=== PATIENT | female | born 1975 | race Caucasian/White ===

== ENCOUNTER 2018-09-22 12:28 | Emergency (ER) | payer OTHER ==
[2018-09-22 13:16] VITALS: RESP 18
[2018-09-22] MEDS ORDERED: ONDANSETRON 4 MG/2 ML VIAL IVP STA ×2 (13:48→18:34)
[2018-09-22] MEDS ORDERED: SODIUM CHLORIDE 0.9% 2,000 ML IV STA (13:48)
[2018-09-22 14:34] LABS: Basophils % (A) 0 %; Eosinophils # (A) 0.3 k/uL (0-0.7); Eosinophils % (A) 3 %; HCT 42.4 % (34.0-46.0); HGB 14.1 gm/dL (11.4-16.0); Lymphocytes % (A) 21 %; MCH 29.6 pg (25.0-35.0); MCHC 33.3 g/dL (31.0-37.0); MCV 88.9 fL (80.0-100.0); Mean Platelet Volume 6.5; Monocytes # (A) 0.5 k/uL (0-1.0); Monocytes % (A) 5 %; Neutrophils # (A) 6.8 k/uL (1.3-7.7); Neutrophils % (A) 69 %; Platelet Count 390 k/uL (150-450); RBC 4.77 m/uL (3.80-5.40); RDW 13.2 % (11.5-15.5); WBC 9.8 k/uL (3.8-10.6)
[2018-09-22 14:44] LABS: ALT 21 U/L (9-52); AST 20 U/L (14-36); Albumin 4.1 g/dL (3.5-5.0); Alkaline Phosphatase 96 U/L (38-126); Amylase 49 U/L (30-110); Anion Gap 9 mmol/L; Blood Urea Nitrogen 16 mg/dL (7-17); Calcium 9.7 mg/dL (8.4-10.2); Carbon Dioxide 26 mmol/L (22-30); Chloride 104 mmol/L (98-107); Glucose 110 mg/dL (74-99); Lipase 61 U/L (23-300); Potassium 4.3 mmol/L (3.5-5.1); Sodium 139 mmol/L (137-145); Total Bilirubin 0.6 mg/dL (0.2-1.3); Total Protein 7.2 g/dL (6.3-8.2)
--- NOTE | 2018-09-22 14:46 | CT ---
EXAMINATION TYPE: CT brain wo con DATE OF EXAM: 09/22/2018 COMPARISON: None HISTORY: Left occipital headache with dizziness. Family history of aneurysm. CT DLP: 1083.[address] of the brain was performed. The ventricles, basal cisterns and sulci overlying the cerebral convexities demonstrate a normal appe arance. There is no evidence for intracranial hemorrhage or sulcal effacement. No mass effects are seen. Osseous calvarium is intact. Mild chronic sinusitis left maxillary sinus. If symptoms persist consider MRI as clinically warranted. IMPRESSION: 1. No acute intracranial process is seen at this time.
--- NOTE | 2018-09-22 15:21 | XR ---
EXAMINATION TYPE: XR chest 2V DATE OF EXAM: 09/22/2018 COMPARISON: NONE HISTORY: Cough TECHNIQUE: Frontal and lateral views of the chest are obtained. FINDINGS: There is no focal air space opacity, pleural effusion, or pneumothorax seen. The cardiac silhouette size is within normal limits. The osseous structures are intact. IMPRESSION: No acute cardiopulmonary process.
[2018-09-22] MEDS ORDERED: KETOROLAC 30 MG/ML 1 ML VIAL IVP STA (15:25)
--- NOTE | 2018-09-22 15:27 | ED ---
Nausea/Vomiting/Diarrhea HPI - General Chief complaint: Nausea/Vomiting/Diarrhea Stated complaint: Vomiting, fever, headache Time Seen by Provider: 09/22/18 13:24 Source: patient, RN notes reviewed Mode of arrival: ambulatory Limitations: no limitations - History of Present Illness Initial comments: This a 43-year-old female presents emergency from chief complaint of nausea vomiting 4 days. Patient states that she does any better by now but states it has not. Patient states she has mild abdominal discomfort states is just does not feel well. Patient has any hematemesis or coffee-ground emesis. Denies any diarrhea constipation. Patient just states she feels dehydrated. She also felt a headache and last 2 days with no neck pain no neck stiffness. She admits to subjective fever though no recorded temperature at home. Patient denies any chest pain or shortness breath. Patient was recently treated for restaurant infection with antibiotics and steroids. Patient states that she did not take it last few days of antibiotics that she has been sick. Patient reports no sick contacts. - Related Data Home Medications Medication Instructions Recorded Confirmed Levocetirizine Dihydrochloride 10 mg PO DAILY 07/23/15 09/22/18 [Xyzal] Sertraline HCl [Zoloft] 100 mg PO DAILY 07/23/15 09/22/18 ALPRAZolam [Xanax] 0.25 mg PO HS PRN 09/22/18 09/22/18 Dextroamphetamine/Amphetamine 20 mg PO BID 09/22/18 09/22/18 [Adderall] Previous Rx's Medication Instructions Recorded Metoclopramide [Reglan] 10 mg PO TID PRN #15 tab 09/22/18 Ondansetron Odt [Zofran Odt] 4 mg PO Q8HR PRN #10 tab 09/22/18 Allergies Allergy/AdvReac Type Severity Reaction Status Date / Time No Known Allergies Allergy Verified 09/22/18 13:48 Review of Systems ROS Statement: Those systems with pertinent positive or pertinent negative responses have been documented in the HPI. ROS Other: All systems not noted in ROS Statement are negative. Past Medical History Past Medical History: Asthma History of Any Multi-Drug Resistant Organisms: None Reported Past Surgical History: Tonsillectomy Past Psychological History: Depression Smoking Status: Never smoker Past Alcohol Use History: Occasional Past Drug Use History: None Reported General Exam Limitations: no limitations General appearance: alert, in no apparent distress Head exam: Present: atraumatic, normocephalic, normal inspection Eye exam: Present: normal appearance, PERRL, EOMI. Absent: scleral icterus, conjunctival injection, periorbital swelling ENT exam: Present: normal oropharynx, mucous membranes dry, TM's normal bilaterally. Absent: normal exam, mucous membranes moist Neck exam: Present: normal inspection, full ROM. Absent: tenderness, meningismus, lymphadenopathy Respiratory exam: Present: normal lung sounds bilaterally. Absent: respiratory distress, wheezes, rales, rhonchi, stridor Cardiovascular Exam: Present: regular rate, normal rhythm, normal heart sounds. Absent: systolic murmur, diastolic murmur, rubs, gallop, clicks GI/Abdominal exam: Present: soft, normal bowel sounds. Absent: distended, tenderness, guarding, rebound, rigid Neurological exam: Present: alert, oriented X3, CN II-XII intact, reflexes normal, other (Finger to nose intact bilaterally without over shooting). Absent : motor sensory deficit Skin exam: Present: warm, dry, intact, normal color. Absent: rash Course Vital Signs 09/22/18 13:13 Temperature 97.9 F Pulse Rate 74 Respiratory 18 Rate Blood Pressure 150/95 O2 Sat by Pulse 98 Oximetry Medical Decision Making - Medical Decision Making 43-year-old female presented for nausea vomiting headache. Patient was concerned that she is family history of aneurysm and that she may have ruptured aneurysm. CT was obtained which showed no acute abnormality. Patient is improved after IV fluids, antiemetics. Patient lab work was reviewed unremarkable labs, urinalysis shows mild ketones. Patient feels better at this time will be discharged with antiemetics and close follow-up. - Lab Data Result diagrams: 09/22/18 14:23 09/22/18 14:23 Lab Results 09/22/18 09/22/18 09/22/18 Range/Units 14:23 14:23 18:00 WBC 9.8 (3.8-10.6) k/uL RBC 4.77 (3.80-5.40) m/uL Hgb 14.1 (11.4-16.0) gm/dL Hct 42.4 (34.0-46.0) % MCV 88.9 (80.0-100.0) fL MCH 29.6 (25.0-35.0) pg MCHC 33.3 (31.0-37.0) g/dL RDW 13.2 (11.5-15.5) % Plt Count 390 (150-450) k/uL Neutrophils % 69 % Lymphocytes % 21 % Monocytes % 5 % Eosinophils % 3 % Basophils % 0 % Neutrophils # 6.8 (1.3-7.7) k/uL Lymphocytes # 2.0 (1.0-4.8) k/uL Monocytes # 0.5 (0-1.0) k/uL Eosinophils # 0.3 (0-0.7) k/uL Basophils # 0.0 (0-0.2) k/uL Sodium 139 (137-145) mmol/L Potassium 4.3 (3.5-5.1) mmol/L Chloride 104 (98-107) mmol/L Carbon Dioxide 26 (22-30) mmol/L Anion Gap 9 mmol/L BUN 16 (7-17) mg/dL Creatinine 0.71 (0.52-1.04) mg/dL Est GFR (CKD-EPI)AfAm >90 (>60 ml/min/1.73 sqM) Est GFR (CKD-EPI)NonAf >90 (>60 ml/min/1.73 sqM) Glucose 110 H (74-99) mg/dL Calcium 9.7 (8.4-10.2) mg/dL Total Bilirubin 0.6 (0.2-1.3) mg/dL AST 20 (14-36) U/L ALT 21 (9-52) U/L Alkaline Phosphatase 96 (38-126) U/L Total Protein 7.2 (6.3-8.2) g/dL Albumin 4.1 (3.5-5.0) g/dL Amylase 49 (30-110) U/L Lipase 61 (23-300) U/L Urine Color Yellow Urine Appearance Cloudy H (Clear) Urine pH 7.5 (5.0-8.0) Ur Specific [place] 1.019 (1.001-1.035) Urine Protein 1+ H (Negative) Urine Glucose (UA) Negative (Negative) Urine Ketones 1+ H (Negative) Urine Blood Negative (Negative) Urine Nitrite Negative (Negative) Urine Bilirubin Negative (Negative) Urine Urobilinogen <2.0 (<2.0) mg/dL Ur Leukocyte Esterase Trace H (Negative) Urine RBC 4 (0-5) /hpf Urine WBC 3 (0-5) /hpf Ur Squamous Epith Cells 12 H (0-4) /hpf Urine Bacteria Many H (None) /hpf Urine Mucus Moderate H (None) /hpf Disposition Clinical Impression: Nausea & vomiting, Headache Disposition: HOME SELF-CARE Condition: Stable Instructions: Acute Headache (ED), Acute Nausea and Vomiting (ED) Additional Instructions: Please return to the Emergency Department if symptoms worsen or any other concerns. Prescriptions: Metoclopramide [Reglan] 10 mg PO TID PRN #15 tab PRN Reason: GERD Ondansetron Odt [Zofran Odt] 4 mg PO Q8HR PRN #10 tab PRN Reason: Nausea Is patient prescribed a controlled substance at d/c from ED?: No Referrals: Kai Shay MD [Primary Care Provider] - 1-2 days Time of Disposition: 18:34
[2018-09-22] MEDS ORDERED: diphenhydrAMINE 50 MG/ML 1 ML VIAL IVP STA (15:55)
[2018-09-22] MEDS ORDERED: METOCLOPRAMIDE 5 MG/ML 2 ML VIAL IVP STA (15:55)
[2018-09-22 18:29] LABS: Appearance,Urine Cloudy (Clear); Bacteria,Urine Many /hpf; Bilirubin,Urine Negative (Negative); Blood,Urine Negative (Negative); Color,Urine Yellow; Glucose,Urine (UA) Negative (Negative); Ketones,Urine 1+ (Negative); Leukocyte Esterase,Urine Trace (Negative); Mucus,Urine Moderate /hpf; Nitrite,Urine Negative (Negative); PH, Urine 7.5 (5.0-8.0); Protein,Urine 1+ (Negative); RBC,Urine 4 /hpf (0-5); Specific Gravity,Urine 1.019 (1.001-1.035); Squamous Epithelial Cell,Urine 12 /hpf (0-4); Urobilinogen,Urine <2.0 mg/dL (<2.0)
[2018-09-22] MEDS ORDERED: ONDANSETRON ODT 4 MG TAB PO STA ×2 (18:32→18:40)
[2018-09-22 18:44] VITALS: BP 130/82; PULSE 62; TEMP 98
== END 2018-09-22 18:50 | disposition home or self-care (01) ==
LOC: EC 12:28
DX: R11.2 Nausea with vomiting, unspecified (principal); R51 Headache; R82.4 Acetonuria; R50.9 Fever, unspecified; F32.9 Major depressive disorder, single episode, unspecified; Z79.899 Other long term (current) drug therapy
CPT/HCPCS: 36415; 80053; 82150; 83690; 85025; 81001; 71046; 70450; 99284; 96374; 96375 ×3; 96376; 96361 ×2; J1200; J2765; J2405; J1885

== ENCOUNTER 2021-10-26 18:21 | Emergency (ER) | payer BC, OTHER ==
--- NOTE | 2021-10-26 20:10 | CT ---
EXAMINATION TYPE: CT brain cspine wo con DATE OF EXAM: 10/26/2021 COMPARISON: CT brain 09/22/2018 HISTORY: fell hitting head on cement, c/o headache and nausea CT DLP: 1272.4 mGycm Automated exposure control for dose reduction was used. Ventricles and sulci appear normal. There is no mass effect or midline shift. There is no sign of int racranial hemorrhage. Calvarium is intact. There is normal aeration of the mastoid sinuses. Cervical vertebra have normal alignment. Posterior elements are intact. Facet joints are intact. Ther e is no compression fracture. Prevertebral soft tissues are intact IMPRESSION: Negative CT scan of the cervical spine. No change. Negative CT scan of the brain.
--- NOTE | 2021-10-26 20:17 | ED ---
General Adult HPI - General Chief complaint: Head Injury Stated complaint: slip & fall, hit head on cement Time Seen by Provider: 10/26/21 19:31 Source: patient, RN notes reviewed, old records reviewed Mode of arrival: ambulatory Limitations: no limitations - History of Present Illness Initial comments: 46-year-old female presenting head injury. Patient had gone outside to get some male. She slipped on the ice falling backward striking the back of her head. She was unconscious momentarily. She had neck pain as well as significant headache. And nausea. She presents to the emergency department for evaluation. She has some minor other injuries but these were not significant according to the patient. She is not on any blood thinners. - Related Data Home Medications Medication Instructions Recorded Confirmed Levocetirizine Dihydrochloride 10 mg PO DAILY 07/23/15 09/22/18 [Xyzal] Sertraline HCl [Zoloft] 100 mg PO DAILY 07/23/15 09/22/18 ALPRAZolam [Xanax] 0.25 mg PO HS PRN 09/22/18 09/22/18 Dextroamphetamine/Amphetamine 20 mg PO BID 09/22/18 09/22/18 [Adderall] Previous Rx's Medication Instructions Recorded Metoclopramide [Reglan] 10 mg PO TID PRN #15 tab 09/22/18 Ondansetron Odt [Zofran Odt] 4 mg PO Q8HR PRN #10 tab 09/22/18 Allergies Allergy/AdvReac Type Severity Reaction Status Date / Time No Known Allergies Allergy Verified 09/22/18 13:48 Review of Systems ROS Statement: Those systems with pertinent positive or pertinent negative responses have been documented in the HPI. ROS Other: All systems not noted in ROS Statement are negative. Past Medical History Past Medical History: Asthma History of Any Multi-Drug Resistant Organisms: None Reported Past Surgical History: Tonsillectomy Past Psychological History: Depression Smoking Status: Never smoker Past Alcohol Use History: Occasional Past Drug Use History: None Reported General Exam Limitations: no limitations General appearance: alert, in no apparent distress Head exam: Present: atraumatic (Tenderness to palpation without hematoma or laceration on the occipital scalp), normocephalic Eye exam: Present: normal appearance, PERRL, EOMI Neck exam: Present: normal inspection. Absent: tenderness, meningismus Respiratory exam: Present: normal lung sounds bilaterally. Absent: respiratory distress, wheezes Cardiovascular Exam: Present: regular rate, normal rhythm GI/Abdominal exam: Present: soft. Absent: distended, tenderness Extremities exam: Present: normal inspection, normal capillary refill. Absent: pedal edema Neurological exam: Present: alert, oriented X3, CN II-XII intact. Absent: motor sensory deficit Psychiatric exam: Present: normal affect, normal mood Skin exam: Present: warm, dry, intact. Absent: cyanosis, diaphoretic Course Vital Signs 10/26/21 19:08 Temperature 99 F Pulse Rate 60 Respiratory 18 Rate Blood Pressure 153/84 O2 Sat by Pulse 99 Oximetry Medical Decision Making - Medical Decision Making CT negative for intracranial hemorrhage or mass effect, cervical spine negative for fracture subluxation. Patient given Toradol intramuscular, concussion precautions. She will take several days off work. Disposition Clinical Impression: Concussion with loss of consciousness Disposition: HOME SELF-CARE Condition: Fair Instructions (If sedation given, give patient instructions): Concussion (ED) Is patient prescribed a controlled substance at d/c from ED?: No Referrals: Kai Shay MD [Primary Care Provider] - 1-2 days Time of Disposition: 20:16
[2021-10-26] MEDS ORDERED: KETOROLAC 15 MG/ML 1 ML VIAL IM STA (20:24)
[2021-10-26 20:53] VITALS: BP 129/79; PULSE 79; RESP 22; TEMP 98
== END 2021-10-26 20:53 | disposition home or self-care (01) ==
LOC: EC 18:21
DX: S06.0X9A Concussion with loss of consciousness of unspecified duration, initial encounter (principal); J45.909 Unspecified asthma, uncomplicated; F32.A Depression, unspecified; W01.10XA Fall on same level from slipping, tripping and stumbling with subsequent striking against unspecified object, initial encounter
CPT/HCPCS: 99283; 96372; 72125; 70450; J1885

== ENCOUNTER 2024-07-01 10:15 | Inpatient (IN) | payer BC ==
--- NOTE | 2024-07-01 10:24 | ED ---
Abdominal Pain HPI - General Chief Complaint: Abdominal Pain Stated Complaint: Abdominal Pain Time Seen by Provider: 07/01/24 10:24 Source: patient (.), RN notes reviewed Mode of arrival: ambulatory Limitations: no limitations - History of Present Illness Initial Comments: 49-year-old female presents emergency department with referral from urgent care for chief complaint of right lower quadrant abdominal pain that has been present over the past 24 hours. States that the pain has been worsening and will radiate into her back. She denies dysuria, hematuria, increase in urinary frequency or urgency. States that she has been experiencing constipation over the past 24 hours as well. Denies previous surgical abdominal history. Reports a fever at home yesterday and endorses nausea. - Related Data Home Medications Medication Instructions Recorded Confirmed Levocetirizine Dihydrochloride 5 mg PO DAILY 07/23/15 07/01/24 [Xyzal] Sertraline HCl [Zoloft] 200 mg PO DAILY 07/23/15 07/01/24 Gabapentin 600 mg PO BID 07/01/24 07/01/24 Naproxen [Naprosyn] 500 mg PO BID PRN 07/01/24 07/01/24 Topiramate [Topamax] 25 mg PO HS 07/01/24 07/01/24 atenoloL 25 mg PO DAILY 07/01/24 07/01/24 traMADol HCL 50 mg PO BID PRN 07/01/24 07/01/24 traZODone HCL [Desyrel] 100 mg PO HS PRN 07/01/24 07/01/24 Allergies Allergy/AdvReac Type Severity Reaction Status Date / Time peas Allergy Unknown Verified 07/01/24 12:06 shellfish derived [Shellfish] Allergy Anaphylaxis Verified 07/01/24 12:06 sunflower oil Allergy Unknown Verified 07/01/24 12:06 Review of Systems ROS Statement: Those systems with pertinent positive or pertinent negative responses have been documented in the HPI. ROS Other: All systems not noted in ROS Statement are negative. Past Medical History Past Medical History: Asthma Additional Past Medical History / Comment(s): bulging disc to lumbar History of Any Multi-Drug Resistant Organisms: None Reported Past Surgical History: Adenoidectomy, Tonsillectomy Additional Past Surgical History / Comment(s): eye surgery Past Psychological History: Depression Smoking Status: Never smoker Past Alcohol Use History: Occasional Past Drug Use History: None Reported General Exam Limitations: no limitations ENT exam: Present: normal exam, mucous membranes moist Respiratory exam: Present: normal lung sounds bilaterally. Absent: respiratory distress, wheezes, rales, rhonchi, stridor Cardiovascular Exam: Present: regular rate, normal rhythm, normal heart sounds. Absent: systolic murmur, diastolic murmur, rubs, gallop, clicks GI/Abdominal exam: Present: soft, tenderness (RLQ, + rovsings), rebound (LLQ p alpation ilicits pain of the RLQ), normal bowel sounds. Absent: distended, guarding, rigid Extremities exam: Present: normal inspection, full ROM, normal capillary refill. Absent: tenderness, pedal edema, joint swelling, calf tenderness Back exam: Present: normal inspection Skin exam: Present: warm, dry, intact, normal color. Absent: rash Course Vital Signs 07/01/24 10:18 Temperature 98 F Pulse Rate 101 H Respiratory 20 Rate Blood Pressure 116/78 O2 Sat by Pulse 98 Oximetry Medical Decision Making - Medical Decision Making Was pt. sent in by a medical professional or institution (, PA, GASFITTER, urgent care, hospital, or correction...) When possible be specific @ -She was advised by urgent care to report to the emergency department for further evaluation of right lower quadrant abdominal pain. Did you speak to anyone other than the patient for history (EMS, parent, family, police, friend...)? What history was obtained from this source @ -No Did you review nursing and triage notes (agree or disagree)? Why? @ -I reviewed and agree with nursing and triage notes Were old charts reviewed (outside hosp., previous admission, EMS record, old EKG, old radiological studies, urgent care reports/EKG's, correction records)? Report findings @ -No old charts were reviewed Differential Diagnosis (chest pain, altered mental status, abdominal pain women, abdominal pain men, vaginal bleeding, weakness, fever, dyspnea, syncope, headache, dizziness, GI bleed, back pain, seizure, CVA, palpatations, mental health, musculoskeletal)? @ -Differential Abdominal Pain Women: Appendicitis, Cholecystitis, diverticulosis, ischemic bowel, pancreatitis, hepatitis, UTI, gastroenteritis, AAA, incarcerated hernia, bowel obstruction, constipation, inflammatory bowel, hepatitis, peptic ulcer disease, splenic infarction, perforated viscus, vulvitis, ovarian torsion, PID, kidney stone, placenta abruption, this is not meant to be an all-inclusive list EKG interpreted by me (3pts min.). @ -none X-rays interpreted by me (1pt min.). @ -None done CT interpreted by me (1pt min.). @ -CT of the abdomen pelvis with IV contrast reveals findings consistent with acute appendicitis with a markedly dilated and inflamed appendix with inflammatory change in the periappendiceal fat U/S interpreted by me (1pt. min.). @ -None done What testing was considered but not performed or refused? (CT, X-rays, U/S, labs)? Why? @ -None What meds were considered but not given or refused? Why? @ -None Did you discuss the management of the patient with other professionals (professionals i.e. , PA, GASFITTER, lab, RT, psych nurse, social sciences professor, diazo technician, teacher, court collections officer, piano case and bench assembler)? Give summary @ -I spoke with general surgeon on-call, Dr. Leal, in regard to the patient's presentation and CT imaging concerning for appendicitis. Patient will be admitted to general surgery with schedule surgery later this afternoon. Patient will be kept in n.p.o. status. Was smoking cessation discussed for >3mins.? @ -No Was critical care preformed (if so, how long)? @ -No Were there social determinants of health that impacted care today? How? (Homelessness, low income, unemployed, alcoholism, drug addiction, transportation, low edu. Level, literacy, decrease access to med. care, long term, rehab)? @ -No Was there de-escalation of care discussed even if they declined (Discuss DNR or withdrawal of care, Hospice)? DNR status @ -No What co-morbidities impacted this encounter? (DM, HTN, Smoking, COPD, CAD, Cancer, CVA, ARF, Chemo, Hep., AIDS, mental health diagnosis, sleep apnea, morbid obesity)? @ -None Was patient admitted / discharged? Hospital course, mention meds given and route, prescriptions, significant lab abnormalities, going to OR and other pertinent info. @ -Admitted. 49-year-old female with right lower quadrant abdominal pain. On my examination patient noted to have positive Rovsing sign and rebound tenderness. Vitals are stable. She is provided with antiemetics pending laboratory results and CT imaging. She is agree with this plan. Laboratory studies reveal leukocytosis 20.5, left shift neutrophils 18.6, hyponatremia 131, amylase and lipase within normal limits, lactic acid nonelevated at 1.3. CT imaging concerning for acute sinusitis. Patient will be admitted to general surgery for further evaluation. Additionally, patient is started on IV Flagyl and Rocephin after blood cultures were obtained. Undiagnosed new problem with uncertain prognosis? @ -No Drug Therapy requiring intensive monitoring for toxicity (Heparin, Nitro, Insulin, Cardizem)? @ -No Were any procedures done? @ -No Diagnosis/symptom? @ -Appendicitis Acute, or Chronic, or Acute on Chronic? @ -Acute Uncomplicated (without systemic symptoms) or Complicated (systemic symptoms)? @ -Complicated Side effects of treatment? @ -No Exacerbation, Progression, or Severe Exacerbation? @ -No Poses a threat to life or bodily function? How? (Chest pain, [place], MA, pneumonia, PE, COPD, DKA, ARF, appy, cholecystitis, CVA, Diverticulitis, Homicidal, Suicidal, threat to staff... and all critical care pts) @ -No - Lab Data Result diagrams: 07/01/24 10:55 07/01/24 10:55 Lab Results 07/01/24 07/01/24 07/01/24 Range/Units 10:55 10:55 10:55 WBC 20.5 H (3.8-10.6) k/uL RBC 4.35 (3.80-5.40) m/uL Hgb 13.6 (11.4-16.0) gm/dL Hct 40.1 (34.0-46.0) % MCV 92.1 (80.0-100.0) fL MCH 31.3 (25.0-35.0) pg MCHC 34.0 (31.0-37.0) g/dL RDW 12.7 (11.5-15.5) % Plt Count 390 (150-450) k/uL MPV 7.3 Neutrophils % 91 % Lymphocytes % 4 % Monocytes % 3 % Eosinophils % 1 % Basophils % 0 % Neutrophils # 18.6 H (1.3-7.7) k/uL Lymphocytes # 0.9 L (1.0-4.8) k/uL Monocytes # 0.7 (0-1.0) k/uL Eosinophils # 0.2 (0-0.7) k/uL Basophils # 0.0 (0-0.2) k/uL Sodium 131 L (137-145) mmol/L Potassium 3.7 (3.5-5.1) mmol/L Chloride 100 (98-107) mmol/L Carbon Dioxide 21 L (22-30) mmol/L Anion Gap 10 mmol/L BUN 14 (7-17) mg/dL Creatinine 0.89 (0.52-1.04) mg/dL Est GFR (CKD-EPI)AfAm 88 (>60 ml/min/1.73 sqM) Est GFR (CKD-EPI)NonAf 76 (>60 ml/min/1.73 sqM) Glucose 162 H (74-99) mg/dL Plasma Lactic Acid Misha 1.3 (0.7-2.0) mmol/L Calcium 8.6 (8.4-10.2) mg/dL Total Bilirubin 0.9 (0.2-1.3) mg/dL AST 18 (14-36) U/L ALT 13 (4-34) U/L Alkaline Phosphatase 90 (38-126) U/L Total Protein 6.3 (6.3-8.2) g/dL Albumin 3.8 (3.5-5.0) g/dL Amylase 39 (30-110) U/L Lipase 35 (23-300) U/L Disposition Clinical Impression: Acute appendicitis Disposition: ADMITTED IP TO THIS [facility] Condition: Serious Decision to Admit Reason: Admit from [facility] Decision Date: 07/01/24 Decision Time: 12:05
[2024-07-01] MEDS: HYDROmorphone 1 MG/ML 1 ML SYRINGE IVP STA (10:53)
[2024-07-01 11:06] LABS: Basophils % (A) 0 %; Eosinophils # (A) 0.2 k/uL (0-0.7); Eosinophils % (A) 1 %; HCT 40.1 % (34.0-46.0); HGB 13.6 gm/dL (11.4-16.0); Lymphocytes # (A) 0.9 k/uL (1.0-4.8); Lymphocytes % (A) 4 %; MCH 31.3 pg (25.0-35.0); MCV 92.1 fL (80.0-100.0); Mean Platelet Volume 7.3; Monocytes # (A) 0.7 k/uL (0-1.0); Monocytes % (A) 3 %; Neutrophils # (A) 18.6 k/uL (1.3-7.7); Neutrophils % (A) 91 %; Platelet Count 390 k/uL (150-450); RBC 4.35 m/uL (3.80-5.40); RDW 12.7 % (11.5-15.5); WBC 20.5 k/uL (3.8-10.6)
[2024-07-01 11:25] LABS: ALT 13 U/L (4-34); AST 18 U/L (14-36); African American GFR (CKD) 88 (>60 ml/min/1.73 sqM); Albumin 3.8 g/dL (3.5-5.0); Alkaline Phosphatase 90 U/L (38-126); Amylase 39 U/L (30-110); Anion Gap 10 mmol/L; Blood Urea Nitrogen 14 mg/dL (7-17); Calcium 8.6 mg/dL (8.4-10.2); Carbon Dioxide 21 mmol/L (22-30); Chloride 100 mmol/L (98-107); Glucose 162 mg/dL (74-99); Lipase 35 U/L (23-300); Non-African American GFR(CKD) 76 (>60 ml/min/1.73 sqM); Potassium 3.7 mmol/L (3.5-5.1); Sodium 131 mmol/L (137-145); Total Bilirubin 0.9 mg/dL (0.2-1.3); Total Protein 6.3 g/dL (6.3-8.2)
--- NOTE | 2024-07-01 11:49 | CT ---
EXAMINATION TYPE: CT abdomen pelvis w con DATE OF EXAM: 07/01/2024 COMPARISON: None HISTORY: rlq PAIN CT DLP: 1464.4 mGycm Automated exposure control for dose reduction was used. TECHNIQUE: Helical acquisition of images was performed from the lung bases through the pelvis. CONTRAST: Performed without Oral Contrast and with IV Contrast, patient injected with 100 mL of Isovue 300. FINDINGS: The lung bases are clear. The gallbladder is normal without distention, wall thickening, pericholecystic fluid or gallstones. T here is no biliary ductal dilatation. There is no focal mass or organomegaly involving the liver, pancreas, spleen or adrenal glands. There is no solid renal mass or hydronephrosis and there is homogeneous contrast enhancement of the r enal parenchyma. The caliber the abdominal aorta is normal is no retroperitoneal adenopathy or hemorr vik. There is a markedly dilated and inflamed appendix. There is moderate to marked inflammatory change in the periappendiceal fat. Focal ileus of the right colon and terminal ileum. There is no bowel obstruction. There is no free intraperitoneal air or fluid. No pelvic mass, free fluid, abscess or adenopathy. The osseous structures and soft tissues are intact. IMPRESSION: Findings consistent with acute appendicitis as described above. [facility], , 07/01/2024 11:47 AM
[2024-07-01] MEDS: SODIUM CHLORIDE 0.9% 1,000 ML IV STA (11:54)
[2024-07-01] MEDS ORDERED: NALOXONE 0.4 MG/ML 1 ML VIAL IV PRN (12:05)
[2024-07-01] MEDS: cefTRIAXone IN SWFI 1,000 MG/10 ML SYRINGE IVP STA (13:10)
[2024-07-01] MEDS: metroNIDAZOLE-NS PMX 500 MG in SALINE 1 100ML.BAG IVPB SCH (13:10)
[2024-07-01] MEDS: HYDROmorphone 1 MG/ML 1 ML SYRINGE IVP PRN (13:45)
--- NOTE | 2024-07-01 13:55 | P.GSHP ---
History of Present Illness H&P Date: 07/01/24 CHIEF COMPLAINT: Abdominal pain HISTORY OF PRESENT ILLNESS: This is a 49-year-old female who presented with right lower quadrant abdominal pain that started yesterday morning. Patient initially thought she had flulike symptoms with nausea and feeling lightheaded. She reports having a fever of 102. However, pain continue to worsen in the right lower quadrant. Patient denies any prior abdominal surgeries. Denies any cardiac history. She had a CT scan abdomen pelvis that showed evidence of acute appendicitis. Patient admitted to surgical service. WBC is elevated. PAST MEDICAL HISTORY: Asthma, 2 bulging disks of lumbar spine PAST SURGICAL HISTORY: See below MEDICATIONS: See below ALLERGIES: See below SOCIAL HISTORY: No illicit drug use. REVIEW OF SYSTEMS: CONSTITUTIONAL: Denies fever or chills. HEENT: Denies blurred vision, vision changes, or eye pain. Denies hemoptysis CARDIOVASCULAR: Denies chest pain or pressure. RESPIRATORY: No shortness of breath. GASTROINTESTINAL: See HPI for pertinent findings HEMATOLOGIC: Denies bleeding disorders. GENITOURINARY: Denies any blood in urine or increased urinary frequency. SKIN: Denies pruitis. Denies rash. PHYSICAL EXAM: VITAL SIGNS: Reviewed GENERAL: Well-developed in no acute distress. HEENT: No sclera icterus. Extraocular movements grossly intact. Moist buccal mucosa. Head is atraumatic, normocephalic. No nasal drainage. ABDOMEN: Soft. Nondistended. Right lower quadrant tenderness with palpation NEUROLOGIC: Alert and oriented. Cranial nerves II through XII grossly intact. LABORATORY DATA: WBC 20.5 Hgb 13.6 platelets 390 Sodium 131 potassium 3.7 creatinine 0.9 Lactic acid 1.3 LFTs normal. Lipase 35 IMAGING: CT scan findings consistent with acute appendicitis ASSESSMENT: 1. Acute appendicitis PLAN: -Patient scheduled for laparoscopic appendectomy today with Dr. Leal -Keep patient n.p.o. -Continue antibiotics -Continue pain management -IV fluids added Physician Insulation Board Coater Operator note has been reviewed by physician. Signing provider agrees with the documented findings, assessment, and plan of care. I have personally seen and examined the patient, reviewed the ALUMINUM SIDING INSTALLER /PAs history, exam and MDM and agree with the assessment and plan as written. Based on total visit time, I have performed more than 50% of the visit. As above: Patient with impressive CAT scan showing marked inflammatory changes right lower quadrant. Patient however states symptoms just began yesterday. Cecum itself appears somewhat unusual. Likely this is just related to a severe case of acute appendicitis with possible rupture. Will proceed with laparoscopic, possible open appendectomy at this time. Risks of bleeding, infection, scarring, leak, abscess, conversion to open procedure, need for bowel resection, progressive sepsis, bladder bowel and ureteral injury reviewed. She understands and wishes to proceed. Past Medical History Past Medical History: Asthma Additional Past Medical History / Comment(s): bulging disc to lumbar History of Any Multi-Drug Resistant Organisms: None Reported Past Surgical History: Adenoidectomy, Tonsillectomy Additional Past Surgical History / Comment(s): eye surgery Past Psychological History: Depression Smoking Status: Never smoker Past Alcohol Use History: Occasional Past Drug Use History: None Reported Medications and Allergies Home Medications Medication Instructions Recorded Confirmed Type Levocetirizine Dihydrochloride 5 mg PO DAILY 07/23/15 07/01/24 History [Xyzal] Sertraline HCl [Zoloft] 200 mg PO DAILY 07/23/15 07/01/24 History Gabapentin 600 mg PO BID 07/01/24 07/01/24 History Naproxen [Naprosyn] 500 mg PO BID PRN 07/01/24 07/01/24 History Topiramate [Topamax] 25 mg PO HS 07/01/24 07/01/24 History atenoloL 25 mg PO DAILY 07/01/24 07/01/24 History traMADol HCL 50 mg PO BID PRN 07/01/24 07/01/24 History traZODone HCL [Desyrel] 100 mg PO HS PRN 07/01/24 07/01/24 History Allergies Allergy/AdvReac Type Severity Reaction Status Date / Time peas Allergy Unknown Verified 07/01/24 12:06 shellfish derived [Shellfish] Allergy Anaphylaxis Verified 07/01/24 12:06 sunflower oil Allergy Unknown Verified 07/01/24 12:06 Surgical - Exam Vital Signs Temp Pulse Resp BP Pulse Ox 98 F 101 H 20 116/78 98 07/01/24 10:18 07/01/24 10:18 07/01/24 10:18 07/01/24 10:18 07/01/24 10:18 Results - Labs 07/01/24 10:55 07/01/24 10:55 Abnormal Lab Results - Last 24 Hours (Table) 07/01/24 07/01/24 Range/Units 10:55 10:55 WBC 20.5 H (3.8-10.6) k/uL Neutrophils # 18.6 H (1.3-7.7) k/uL Lymphocytes # 0.9 L (1.0-4.8) k/uL Sodium 131 L (137-145) mmol/L Carbon Dioxide 21 L (22-30) mmol/L Glucose 162 H (74-99) mg/dL Diabetes panel 07/01/24 Range/Units 10:55 Sodium 131 L (137-145) mmol/L Potassium 3.7 (3.5-5.1) mmol/L Chloride 100 (98-107) mmol/L Carbon Dioxide 21 L (22-30) mmol/L BUN 14 (7-17) mg/dL Creatinine 0.89 (0.52-1.04) mg/dL Glucose 162 H (74-99) mg/dL Calcium 8.6 (8.4-10.2) mg/dL AST 18 (14-36) U/L ALT 13 (4-34) U/L Alkaline Phosphatase 90 (38-126) U/L Total Protein 6.3 (6.3-8.2) g/dL Albumin 3.8 (3.5-5.0) g/dL Calcium panel 07/01/24 Range/Units 10:55 Calcium 8.6 (8.4-10.2) mg/dL Albumin 3.8 (3.5-5.0) g/dL Pituitary panel 07/01/24 Range/Units 10:55 Sodium 131 L (137-145) mmol/L Potassium 3.7 (3.5-5.1) mmol/L Chloride 100 (98-107) mmol/L Carbon Dioxide 21 L (22-30) mmol/L BUN 14 (7-17) mg/dL Creatinine 0.89 (0.52-1.04) mg/dL Glucose 162 H (74-99) mg/dL Calcium 8.6 (8.4-10.2) mg/dL Adrenal panel 07/01/24 Range/Units 10:55 Sodium 131 L (137-145) mmol/L Potassium 3.7 (3.5-5.1) mmol/L Chloride 100 (98-107) mmol/L Carbon Dioxide 21 L (22-30) mmol/L BUN 14 (7-17) mg/dL Creatinine 0.89 (0.52-1.04) mg/dL Glucose 162 H (74-99) mg/dL Calcium 8.6 (8.4-10.2) mg/dL Total Bilirubin 0.9 (0.2-1.3) mg/dL AST 18 (14-36) U/L ALT 13 (4-34) U/L Alkaline Phosphatase 90 (38-126) U/L Total Protein 6.3 (6.3-8.2) g/dL Albumin 3.8 (3.5-5.0) g/dL
[2024-07-01] MEDS: IV FLUID CONTINUATION 1,000 ML IV ONE ×2 (13:56→16:43)
[2024-07-01] MEDS: ONDANSETRON 4 MG/2 ML VIAL IVP STA (14:16)
[2024-07-01] MEDS: HEPARIN SODIUM,PORCINE 5,000 UNIT/ML 1 ML VIAL SQ STA (14:17)
[2024-07-01] MEDS ORDERED: PROPOFOL 10 MG/ML 20 ML VIAL IV ONE (14:34)
[2024-07-01] MEDS ORDERED: LIDOCAINE 1% INJ 10MG/ML (20 ML MDV) ONE (14:34)
[2024-07-01] MEDS ORDERED: fentaNYL (PF) 50 MCG/ML 2 ML AMP ONE (14:34)
[2024-07-01] MEDS ORDERED: SUCCINYLCHOLINE CHLORIDE 200 MG/10 ML VIAL IV ONE (14:34)
[2024-07-01] MEDS ORDERED: SUGAMMADEX SODIUM 200 MG/2 ML SDV IV ONE (14:34)
[2024-07-01] MEDS ORDERED: ROCURONIUM 10 MG/ML (5 ML VIAL) IV ONE (14:34)
[2024-07-01] MEDS ORDERED: NEOSTIGMINE 1 MG/ML 10 ML VIAL ONE (14:34)
[2024-07-01] MEDS ORDERED: HYDROmorphone (PF) 1 MG/ML ONE (14:34)
[2024-07-01] MEDS ORDERED: MIDAZOLAM 2 MG/2 ML VIAL ONE (14:34)
[2024-07-01] MEDS ORDERED: GLYCOPYRROLATE 0.2 MG/ML 2 ML VIAL ONE (14:34)
[2024-07-01] MEDS: SODIUM CHLORIDE 0.9% 100 ML with ceFAZolin 2,000 MG IV ONE (14:38)
[2024-07-01] MEDS: LIDOCAINE 1%-EPI 1:100,000 20 ML VIAL SQ ONE ×2 (15:01)
[2024-07-01] MEDS ORDERED: ACETAMINOPHEN TAB 325 MG TAB PO PRN (15:39)
--- NOTE | 2024-07-01 15:43 | P.OP ---
Date of Procedure: 07/01/24 Procedure(s) Performed: PREOPERATIVE DIAGNOSIS: Acute appendicitis POSTOPERATIVE DIAGNOSIS: Acute gangrenous appendicitis PROCEDURE: Laparoscopic appendectomy SURGEON: Mel EBL: 10 cc ANESTHESIA: General COMPLICATIONS: None OPERATIVE PROCEDURE: The patient was brought and placed on the operating table in the supine position. The patient was placed under general anesthesia. The abdomen was prepped and draped in the usual sterile fashion. A small vertical infraumbilical incision was made. The fascia was retracted anteriorly with Frederic forceps. The Veress needle was advanced into the peritoneal cavity. The saline drop test was normal. Insufflation took place to 15 mmHg. A 5 mm trocar was then placed. An additional 5 mm suprapubic trocar was placed under direct visualization as well as a 12 mm left lower quadrant trocar under direct visualization. The appendix was inspected. It was acutely inflamed with gangrenous changes. There were some adhesions between the cecum and the abdominal wall that appeared chronic in nature. These were lysed using blunt dissection and LigaSure. The mesoappendix was dissected. The base of the appendix was divided using a linear white load 45 mm intestinal stapler. The mesentery itself was divided using LigaSure. The area was then irrigated. No further purulence or bleeding was seen. The appendix was brought out of the peritoneal cavity through the left lower quadrant trocar site with an Endo Catch bag. I decided given the gangrenous nature and the degree of inflammatory changes in the right lower quadrant to leave a drain there. This was brought out through the suprapubic trocar site. The drain was brought from the pelvis along the right gutter. This was sutured to the skin using a 3-0 silk stitch. The fascia at the 12 mm site was closed using a Hiro-Geetha 0 Vicryl stitch. The skin at all 3 sites was closed using 4-0 Monocryl sutures. Skin glue was then applied. DISPOSITION: Stable to recovery room
[2024-07-01] MEDS: KETOROLAC 15 MG/ML 1 ML VIAL IVP SCH (16:16)
[2024-07-01] MEDS: HYDROmorphone 0.5 MG/0.5 ML SYRINGE IVP PRN (16:16)
[2024-07-01] MEDS: SODIUM CHLORIDE 0.9% 1,000 ML IV SCH (17:37)
[2024-07-01] MEDS: HEPARIN SODIUM,PORCINE 5,000 UNIT/ML 1 ML VIAL SQ SCH (17:53)
[2024-07-01] MEDS: PIPERACILLIN-TAZOBACTAM 3.375 GM in SODIUM CHLORIDE 0.9% 100 ML IVPB SCH ×2 (18:24→23:16)
[2024-07-01] MEDS: D5-0.45% NACL WITH KCL 20MEQ/L 1,000 ML IV SCH (19:52)
[2024-07-02] MEDS: HYDROcodone/APAP 5-325MG 1 EACH TAB PO PRN (08:23)
[2024-07-02] MEDS: PANTOPRAZOLE 40 MG/10 ML VIAL IV SCH (08:23)
--- NOTE | 2024-07-02 09:10 | P.PN ---
Subjective Progress Note Date: 07/02/24 Principal diagnosis: Gangrenous appendicitis Patient says her pain is slightly improved although still quite uncomfortable. YAIMA drain is serosanguineous. She is afebrile. Morning labs pending. No nausea. Tolerating liquids. Objective - Vital Signs Vital signs: Vital Signs Temp 98.3 F 07/02/24 07:00 Pulse 86 07/02/24 07:00 Resp 16 07/02/24 07:00 BP 105/67 07/02/24 07:00 Pulse Ox 96 07/02/24 07:00 FiO2 Intake & Output 07/01/24 07/02/24 07/02/24 18:59 06:59 18:59 Intake Total 1100 Output Total 10 Balance 1090 Weight 101.605 kg Intake: IV 1100 Output: Estimated Blood Loss 10 Other: # Voids 1 3 - Exam Abdomen: Soft, nondistended, incisions clean and dry, mild tenderness to right side and left side, YAIMA serosanguineous - Labs CBC & Chem 7: 07/01/24 10:55 07/01/24 10:55 Labs: Abnormal Lab Results - Last 24 Hours (Table) 07/01/24 07/01/24 Range/Units 10:55 10:55 WBC 20.5 H (3.8-10.6) k/uL Neutrophils # 18.6 H (1.3-7.7) k/uL Lymphocytes # 0.9 L (1.0-4.8) k/uL Sodium 131 L (137-145) mmol/L Carbon Dioxide 21 L (22-30) mmol/L Glucose 162 H (74-99) mg/dL Assessment and Plan (1) Acute appendicitis Narrative/Plan: 49-year-old female doing fairly well after laparoscopic appendectomy yesterday. Continue increasing activity. Continue antibiotics. Gradually advance diet. Keep drain in place. Current Visit: Yes Status: Acute Code(s): K35.80 - UNSPECIFIED ACUTE APPENDICITIS SNOMED Code(s): 90049062
[2024-07-02 10:02] LABS: ALT 8 U/L (8-44); AST 14 U/L (13-35); Albumin 3.4 g/dL (3.8-4.9); Alkaline Phosphatase 91 U/L (41-126); Blood Urea Nitrogen 9.1 mg/dL (9.0-27.0); Carbon Dioxide 25.3 mmol/L (21.6-31.8); Chloride 102 mmol/L (96-109); Glucose 132 mg/dL (70-110); Potassium 3.9 mmol/L (3.5-5.5); Sodium 136 mmol/L (135-145); Total Bilirubin 0.3 mg/dL (0.3-1.2); Total Protein 5.4 g/dL (6.2-8.2)
[2024-07-02 10:10] LABS: Basophils # (A) 0.06 X 10*3/uL (0.00-0.10); Basophils % (A) 0.3 %; Eosinophils # (A) 0.28 X 10*3/uL (0.04-0.35); Eosinophils % (A) 1.4 %; HCT 36.3 % (37.2-46.3); HGB 11.9 g/dL (12.0-15.0); Lymphocytes # (A) 1.59 X 10*3/uL (0.90-5.00); Lymphocytes % (A) 7.7 %; MCH 30.7 pg (27.0-32.0); MCHC 32.8 g/dL (32.0-37.0); MCV 93.8 FL (80.0-97.0); Mean Platelet Volume 9.8 FL (9.5-12.2); Monocytes # (A) 1.35 X 10*3/uL (0.20-1.00); Monocytes % (A) 6.5 %; NRBC Per 100 WBC 0 X 10*3/uL (0.00-0.01); Neutrophils # (A) 17.28 X 10*3/uL (1.80-7.70); Neutrophils % (A) 83.4 %; Platelet Count 357 X 10*3/uL (140-440); RBC 3.87 X 10*6/uL (4.10-5.20); RDW 12.6 % (11.5-14.5); WBC 20.71 X 10*3/uL (4.50-10.00)
[2024-07-03] MEDS: DOCUSATE 100 MG CAP PO SCH (09:12)
[2024-07-03] MEDS: diphenhydrAMINE 25 MG CAP PO PRN (09:12)
--- NOTE | 2024-07-03 10:03 | P.PN ---
Subjective Progress Note Date: 07/03/24 Principal diagnosis: Gangrenous appendicitis Patient says her pain is improved today. Still mostly in the right lower quadrant. YAIMA drain serosanguineous and slightly cloudy. White blood cell count yesterday remained elevated at 20,000. She is afebrile. No tachycardia. Tole rating regular diet. Objective - Vital Signs Vital signs: Vital Signs Temp 97.9 F 07/03/24 07:00 Pulse 79 07/03/24 09:23 Resp 16 07/03/24 09:23 BP 114/75 07/03/24 07:00 Pulse Ox 98 07/03/24 07:00 FiO2 Intake & Output 07/02/24 07/03/24 07/03/24 18:59 06:59 18:59 Intake Total 480 240 Output Total 40 Balance 480 -40 240 Intake: Oral 480 240 Output: Drainage 40 Anterior Abdomen 40 Other: # Voids 2 2 - Exam Abdomen: Soft, mild right lower quadrant tenderness, mild left-sided incisional tenderness, YAIMA serosanguineous - Labs CBC & Chem 7: 07/02/24 03:43 07/02/24 03:43 Labs: Abnormal Lab Results - Last 24 Hours (Table) 07/02/24 07/02/24 Range/Units 03:43 03:43 WBC 20.71 H (4.50-10.00) X 10*3/uL RBC 3.87 L (4.10-5.20) X 10*6/uL Hgb 11.9 L (12.0-15.0) g/dL Hct 36.3 L (37.2-46.3) % Immature Gran # 0.15 H (0.00-0.04) X 10*3/uL Neutrophils # 17.28 H (1.80-7.70) X 10*3/uL Monocytes # 1.35 H (0.20-1.00) X 10*3/uL Glucose 132 H (70-110) mg/dL Calcium 8.0 L (8.7-10.3) mg/dL Total Protein 5.4 L (6.2-8.2) g/dL Albumin 3.4 L (3.8-4.9) g/dL Microbiology - Last 24 Hours (Table) 07/01/24 13:20 Blood Culture - Preliminary Blood Assessment and Plan (1) Acute appendicitis Narrative/Plan: Patient doing slightly better today. Degree of tenderness is improved. Continue antibiotics. Continue regular diet. Ambulate. Recheck CBC tomorrow. Current Visit: Yes Status: Acute Code(s): K35.80 - UNSPECIFIED ACUTE APPENDICITIS SNOMED Code(s): 31714339
[2024-07-04 08:46] LABS: Blood Urea Nitrogen 3.9 mg/dL (9.0-27.0); Carbon Dioxide 26.3 mmol/L (21.6-31.8); Chloride 106 mmol/L (96-109); Glucose 138 mg/dL (70-110); Sodium 140 mmol/L (135-145)
[2024-07-04 08:49] LABS: Basophils # (A) 0.02 X 10*3/uL (0.00-0.10); Basophils % (A) 0.2 %; Eosinophils # (A) 0.76 X 10*3/uL (0.04-0.35); Eosinophils % (A) 7.7 %; HCT 34.8 % (37.2-46.3); HGB 11.4 g/dL (12.0-15.0); Lymphocytes # (A) 1.21 X 10*3/uL (0.90-5.00); Lymphocytes % (A) 12.2 %; MCH 31.2 pg (27.0-32.0); MCHC 32.8 g/dL (32.0-37.0); MCV 95.3 FL (80.0-97.0); Mean Platelet Volume 9.8 FL (9.5-12.2); Monocytes # (A) 0.83 X 10*3/uL (0.20-1.00); Monocytes % (A) 8.4 %; NRBC Per 100 WBC 0 X 10*3/uL (0.00-0.01); Neutrophils # (A) 7.03 X 10*3/uL (1.80-7.70); Neutrophils % (A) 71.2 %; Platelet Count 351 X 10*3/uL (140-440); RBC 3.65 X 10*6/uL (4.10-5.20); RDW 12.3 % (11.5-14.5); WBC 9.88 X 10*3/uL (4.50-10.00)
--- NOTE | 2024-07-04 11:12 | P.PN ---
Subjective Progress Note Date: 07/04/24 CHIEF COMPLAINT: Acute appendicitis HISTORY OF PRESENT ILLNESS: Patient is postop day #3 status post laparoscopic appendectomy for gangrenous appendicitis. Patient does complain of pain in that right lower quadrant. Denies any nausea or vomiting. She is having flatus. Patient reports urinating frequently. But does report the urine is still a little dark. YAIMA drain 40 mL cloudy serosanguineous output. Afebrile. WBC has normalized from 20-9.88 PHYSICAL EXAM: VITAL SIGNS: Reviewed. GENERAL: Well-developed in no acute distress. ABDOMEN: Soft. Nondistended. Tender right lower quadrant. Incision sites clean dry and intact. YAIMA drain with cloudy serosanguineous output.. NEUROLOGIC: Alert and oriented. Cranial nerves II through XII grossly intact. ASSESSMENT: 1. Gangrenous appendicitis PLAN: -Continue pain management -Encourage patient to ambulate -Incentive spirometer ordered -Decrease IV fluids to 50 mL/h -Continue antibiotics -GI prophylaxis Protonix and DVT prophylaxis subcu heparin Physician Sap Grc Security note has been reviewed by physician. Signing provider agrees with the documented findings, assessment, and plan of care. I have personally seen and examined the patient, reviewed the PERINATAL INSTRUCTOR /PAs history, exam and MDM and agree with the assessment and plan as written. Based on total visit time, I have performed more than 50% of the visit. As above: Patient says pain is slightly better than yesterday. Still mostly on the right side. White blood cell count is normal now. Afebrile. No tachycardia. Continue antibiotics. Continue diet. Reassess for discharge tomorrow. Objective - Vital Signs Vital signs: Vital Signs Temp 98 F 07/04/24 07:20 Pulse 74 07/04/24 07:20 Resp 16 07/04/24 07:20 BP 133/82 07/04/24 07:20 Pulse Ox 96 07/04/24 07:20 FiO2 Intake & Output 07/03/24 07/04/24 07/04/24 18:59 06:59 18:59 Intake Total 240 Balance 240 Intake: Oral 240 Other: # Voids 3 2 - Labs CBC & Chem 7: 07/04/24 04:41 07/04/24 04:41 Labs: Abnormal Lab Results - Last 24 Hours (Table) 07/04/24 07/04/24 Range/Units 04:41 04:41 RBC 3.65 L (4.10-5.20) X 10*6/uL Hgb 11.4 L (12.0-15.0) g/dL Hct 34.8 L (37.2-46.3) % Eosinophils # 0.76 H (0.04-0.35) X 10*3/uL BUN 3.9 L (9.0-27.0) mg/dL BUN/Creatinine Ratio 6.50 L (12.00-20.00) Ratio Glucose 138 H (70-110) mg/dL Calcium 8.0 L (8.7-10.3) mg/dL Microbiology - Last 24 Hours (Table) 07/01/24 13:20 Blood Culture - Preliminary Blood
[2024-07-05] MEDS: ONDANSETRON 4 MG/2 ML VIAL IVP PRN (08:25)
[2024-07-05] MEDS: traMADol 50 MG TAB PO PRN (08:32)
[2024-07-05] MEDS: IPRATROPIUM-ALBUTEROL 3 ML NEB INHALATION SCH (09:06)
--- NOTE | 2024-07-05 12:33 | P.PN ---
Subjective Progress Note Date: 07/05/24 CHIEF COMPLAINT: Acute appendicitis HISTORY OF PRESENT ILLNESS: Patient is postop day #4 status post laparoscopic appendectomy for gangrenous appendicitis. Patient is complaining of cough and wheezing. She does have a known history of asthma. She reports that her abdomen abdominal pain is worse today due to the coughing. She did have an episode of vomiting this morning. She does report having bowel movements. She did ambulate. Afebrile. PHYSICAL EXAM: VITAL SIGNS: Reviewed. GENERAL: Well-developed in no acute distress. ABDOMEN: Soft. Nondistended. Mild diffuse tenderness. Mostly tender right lower quadrant. YAIMA drain serosanguineous output. NEUROLOGIC: Alert and oriented. Cranial nerves II through XII grossly intact. ASSESSMENT: 1. Gangrenous appendicitis PLAN: -DuoNeb updrafts added for cough and wheezing -Encourage patient to ambulate -Continue to monitor -Continue supportive care -Continue pain management -Encourage patient to ambulate -Incentive spirometer ordered -Discontinue IV fluids -Continue antibiotics -GI prophylaxis Protonix and DVT prophylaxis subcu heparin Physician Winderman note has been reviewed by physician. Signing provider agrees with the documented findings, assessment, and plan of care. I have personally seen and examined the patient, reviewed the BIOLOGICAL SCIENTIST /PAs history, exam and MDM and agree with the assessment and plan as written. Based on total visit time, I have performed more than 50% of the visit. As above: Patient doing better now. This morning she had some coughing and some trouble breathing which improved. Apparently she uses an inhaler for this at home. Pain slightly improved. YAIMA drain remains cloudy. Continue IV antibi otics. Objective - Vital Signs Vital signs: Vital Signs Temp 97.7 F 07/05/24 07:00 Pulse 80 07/05/24 09:47 Resp 16 07/05/24 07:00 BP 145/87 07/05/24 07:00 Pulse Ox 100 07/05/24 07:00 FiO2 Intake & Output 07/04/24 07/05/24 07/05/24 18:59 06:59 18:59 Other: Voiding Method Toilet # Voids 4 2 # Bowel Movements 1 - Labs CBC & Chem 7: 07/04/24 04:41 07/04/24 04:41 Labs: Microbiology - Last 24 Hours (Table) 07/01/24 13:20 Blood Culture - Preliminary Blood
[2024-07-05] MEDS: SERTRALINE 100 MG TAB PO SCH (15:17)
[2024-07-05] MEDS: METOCLOPRAMIDE 5 MG/ML 2 ML VIAL IVP PRN (22:46)
--- NOTE | 2024-07-06 13:05 | P.PN ---
Subjective Progress Note Date: 07/06/24 CHIEF COMPLAINT: Acute appendicitis HISTORY OF PRESENT ILLNESS: Patient is postop day #5 status post laparoscopic appendectomy for gangrenous appendicitis. Patient reports improvement in her breathing and wheezing with the breathing treatments. She did have episode of vomiting last night. Her pain is slightly better. She is tolerating diet. She is eating only a small amount of the food. YAIMA drain more serous in color. She had 60 mL output per nursing staff. Per nursing staff patient has been draining her own YAIMA drain. PHYSICAL EXAM: VITAL SIGNS: Reviewed. GENERAL: Well-developed in no acute distress. ABDOMEN: Soft. Nondistended. Mild diffuse tenderness. Mostly tender right lower quadrant. YAIMA drain more serous in color and slightly cloudy output. NEUROLOGIC: Alert and oriented. Cranial nerves II through XII grossly intact. ASSESSMENT: 1. Gangrenous appendicitis PLAN: -Repeat CBC in a.m. -Anticipate discharge possibly tomorrow -Encourage patient to ambulate -Patient will be discharged home with a YAIMA drain -Continue pain management -Continue antibiotics -GI prophylaxis Protonix and DVT prophylaxis subcu heparin Physician Wind Turbine Mechanic note has been reviewed by physician. Signing provider agrees with the documented findings, assessment, and plan of care. Objective - Vital Signs Vital signs: Vital Signs Temp 98.6 F 07/06/24 07:02 Pulse 80 07/06/24 12:23 Resp 16 07/06/24 12:23 BP 150/75 07/06/24 07:02 Pulse Ox 96 07/06/24 07:02 FiO2 Intake & Output 07/05/24 07/06/24 07/06/24 18:59 06:59 18:59 Intake Total 118 Balance 118 Intake: Oral 118 Other: Voiding Method Toilet Toilet # Voids 5 - Labs CBC & Chem 7: 07/04/24 04:41 07/04/24 04:41
[2024-07-06 20:17] VITALS: TEMP 97.9
[2024-07-07 07:39] VITALS: BP 131/76; RESP 17
[2024-07-07 08:03] VITALS: PULSE 74
[2024-07-07 08:58] LABS: HCT 35.2 % (37.2-46.3); HGB 11.4 g/dL (12.0-15.0); MCH 30.2 pg (27.0-32.0); MCHC 32.4 g/dL (32.0-37.0); MCV 93.4 FL (80.0-97.0); Mean Platelet Volume 9.4 FL (9.5-12.2); NRBC Per 100 WBC 0 X 10*3/uL (0.00-0.01); Platelet Count 401 X 10*3/uL (140-440); RBC 3.77 X 10*6/uL (4.10-5.20); RDW 12.4 % (11.5-14.5); WBC 11.99 X 10*3/uL (4.50-10.00)
[2024-07-07 10:14] LABS: Basophils # (A) 0.06 X 10*3/uL (0.00-0.10); Basophils % (A) 0.5 %; Eosinophils # (A) 0.71 X 10*3/uL (0.04-0.35); Eosinophils % (A) 5.9 %; Lymphocytes # (A) 2.37 X 10*3/uL (0.90-5.00); Lymphocytes % (A) 19.8 %; Monocytes # (A) 0.99 X 10*3/uL (0.20-1.00); Monocytes % (A) 8.3 %; Neutrophils # (A) 7.79 X 10*3/uL (1.80-7.70); Neutrophils % (A) 64.9 %; RBC Morphology Normal (Normal)
--- NOTE | 2024-07-07 10:48 | P.DS ---
Providers Date of admission: 07/04/24 11:54 Expected date of discharge: 07/07/24 Attending physician: Angel Luis Leal Primary care physician: Physician Nonstaff Hospital Course: Discharge diagnosis 1. Gangrenous appendicitis status post laparoscopic appendectomy Hospital course This is a 49-year-old female who presented with right lower quadrant abdominal pain. CT scan abdomen pelvis had reported evidence of acute appendicitis. Patient is status post laparoscopic appendectomy. Her pain is controlled. She is tolerating diet. She is having bowel movements. She has been up and ambulating. She is afebrile. Her pain is controlled. She is stable for discharge. Please refer to chart for any further details. Physician Administrative Library Assistant note has been reviewed by physician. Signing provider agrees with the documented findings, assessment, and plan of care. Patient Condition at Discharge: Stable Plan - Discharge Summary Discharge Rx Participant: No New Discharge Prescriptions: New Amoxic-Pot Clav 875-125Mg [Augmentin 875-125] 1 tab PO Q12HR 7 Days #14 tab HYDROcodone/APAP 5-325MG [[place] 5-325] 1 tab PO Q6HR PRN 3 Days #12 tab PRN Reason: Pain Continue Sertraline HCl [Zoloft] 200 mg PO DAILY Levocetirizine Dihydrochloride [Xyzal] 5 mg PO DAILY traZODone HCL [Desyrel] 100 mg PO HS PRN PRN Reason: Insomnia atenoloL 25 mg PO DAILY Naproxen [Naprosyn] 500 mg PO BID PRN PRN Reason: Pain Topiramate [Topamax] 25 mg PO HS Gabapentin 600 mg PO BID Discontinued traMADol HCL 50 mg PO BID PRN PRN Reason: Pain Discharge Medication List Levocetirizine Dihydrochloride [Xyzal] 5 mg PO DAILY 07/23/15 [History] Sertraline HCl [Zoloft] 200 mg PO DAILY 07/23/15 [History] Gabapentin 600 mg PO BID 07/01/24 [History] Naproxen [Naprosyn] 500 mg PO BID PRN 07/01/24 [History] Topiramate [Topamax] 25 mg PO HS 07/01/24 [History] atenoloL 25 mg PO DAILY 07/01/24 [History] traZODone HCL [Desyrel] 100 mg PO HS PRN 07/01/24 [History] Amoxic-Pot Clav 875-125Mg [Augmentin 875-125] 1 tab PO Q12HR 7 Days #14 tab 07/07/24 [Rx] HYDROcodone/APAP 5-325MG [[place] 5-325] 1 tab PO Q6HR PRN 3 Days #12 tab 07/07/24 [Rx] Follow up Appointment(s)/Referral(s): None,Stated [REFERRING] - 1-2 days Angel Luis Leal MD [Medical Doctor] - 1 Week Activity/Diet/Wound Care/Special Instructions: No driving while taking [place] No lifting over 10 pounds You may shower. No soaking or tub baths for 2 weeks Very light activity until you are reevaluated at your follow up appointment with your surgeon Keep a log of YAIMA drain output and bring with you to your follow-up appointment Milk/strip drains 2-3 times a day Discharge Disposition: HOME SELF-CARE
== END 2024-07-07 12:55 | disposition home or self-care (01) | DRG 399 ==
LOC: EC 10:15 → 6NMEDSUR 11:57 → OBSVTOIN 07-04 11:54
PROVIDERS: ADMIT Surgery; ATTEND Surgery
PROC: 0DTJ4ZZ Resection of Appendix, Percutaneous Endoscopic Approach (ICD-10-PCS; principal; 2024-07-01 08:50)
DX: K35.891 Other acute appendicitis without perforation, with gangrene (principal); F32.A Depression, unspecified; J45.909 Unspecified asthma, uncomplicated; K59.00 Constipation, unspecified; Z79.899 Other long term (current) drug therapy
CPT/HCPCS: 36415; 74177; 80048; 80053; 82150; 83605; 83690; 85025; 87040; 88304; 94640; 96361; 96365; 96375; 96376; 99285

== ENCOUNTER 2025-02-08 16:41 | Observation (INO) | payer BC, OTHER ==
--- NOTE | 2025-02-08 18:00 | ED ---
General Adult HPI - General Chief complaint: Upper Respiratory Infection Stated complaint: cough SOB Time Seen by Provider: 02/08/25 17:20 Source: patient, RN notes reviewed Mode of arrival: ambulatory Limitations: no limitations - History of Present Illness Initial comments: 49-year-old female presents emergency department chief complaint of dyspnea. P atient states she has been sick over a month she has been multiple antibiotics, steroids, breathing treatments with no symptom relief. She does have underlying asthma worsening symptoms. Patient states she did a breathing treatment just prior to arrival states it did not help much. Patient states that she has been seen by her PCP in urgent care. Patient denies chest pain no headache states that she has worsening symptoms with ambulation, worsening cough no leg pain or leg swelling. - Related Data Home Medications Medication Instructions Recorded Confirmed Levocetirizine Dihydrochloride 5 mg PO DAILY 07/23/15 07/01/24 [Xyzal] Sertraline HCl [Zoloft] 200 mg PO DAILY 07/23/15 07/01/24 Gabapentin 600 mg PO BID 07/01/24 07/01/24 Naproxen [Naprosyn] 500 mg PO BID PRN 07/01/24 07/01/24 Topiramate [Topamax] 25 mg PO HS 07/01/24 07/01/24 atenoloL 25 mg PO DAILY 07/01/24 07/01/24 traZODone HCL [Desyrel] 100 mg PO HS PRN 07/01/24 07/01/24 Previous Rx's Medication Instructions Recorded Amoxic-Pot Clav 875-125Mg 1 tab PO Q12HR 7 Days #14 tab 07/07/24 [Augmentin 875-125] HYDROcodone/APAP 5-325MG [Bostic 1 tab PO Q6HR PRN 3 Days #12 tab 07/07/24 5-325] Ondansetron Odt [Zofran Odt] 4 mg PO Q8HR PRN #9 tab 07/07/24 Allergies Allergy/AdvReac Type Severity Reaction Status Date / Time peas Allergy Unknown Verified 02/08/25 17:15 shellfish derived [Shellfish] Allergy Anaphylaxis Verified 02/08/25 17:15 sunflower oil Allergy Unknown Verified 02/08/25 17:15 Review of Systems ROS Statement: Those systems with pertinent positive or pertinent negative responses have been documented in the HPI. ROS Other: All systems not noted in ROS Statement are negative. Past Medical History Past Medical History: Asthma Additional Past Medical History / Comment(s): bulging disc to lumbar History of Any Multi-Drug Resistant Organisms: None Reported Past Surgical History: Adenoidectomy, Tonsillectomy Additional Past Surgical History / Comment(s): eye surgery Past Psychological History: Depression Smoking Status: Never smoker Past Alcohol Use History: Occasional Past Drug Use History: None Reported General Exam Limitations: no limitations General appearance: alert, in no apparent distress Head exam: Present: atraumatic, normocephalic, normal inspection Eye exam: Present: normal appearance, PERRL, EOMI. Absent: scleral icterus, conjunctival injection, periorbital swelling ENT exam: Present: normal exam, normal oropharynx, mucous membranes moist Neck exam: Present: normal inspection, full ROM. Absent: tenderness, meningismus, lymphadenopathy Respiratory exam: Present: respiratory distress, wheezes. Absent: normal lung sounds bilaterally, rales, rhonchi, stridor Cardiovascular Exam: Present: normal rhythm, tachycardia, normal heart sounds. Absent: systolic murmur, diastolic murmur, rubs, gallop, clicks Course Vital Signs 02/08/25 02/08/25 02/08/25 17:13 18:12 18:20 Temperature 98.1 F Pulse Rate 108 H 98 100 Respiratory 22 Rate Blood Pressure 129/81 O2 Sat by Pulse 94 L Oximetry 02/08/25 18:29 Temperature Pulse Rate 102 H Respiratory Rate Blood Pressure O2 Sat by Pulse Oximetry EKG Findings - EKG Comments: EKG Findings:: EKG performed at 18: 44 sinus rhythm rate 98 MT 168 QRS 93 QT/QTc 366/421 - EKG Results: EKG: interpreted by ERMD Medical Decision Making - Medical Decision Making Was pt. sent in by a medical professional or institution (, PA, DATA OPERATIONS MANAGER, urgent care, hospital, or half-way...) When possible be specific @ -No Did you speak to anyone other than the patient for history (EMS, parent, family, police, friend...)? What history was obtained from this source @ -No Did you review nursing and triage notes (agree or disagree)? Why? @ -I reviewed and agree with nursing and triage notes Were old charts reviewed (outside hosp., previous admission, EMS record, old EKG, old radiological studies, urgent care reports/EKG's, half-way records)? Report findings @ -No old charts were reviewed Differential Diagnosis (chest pain, altered mental status, abdominal pain women, abdominal pain men, vaginal bleeding, weakness, fever, dyspnea, syncope, headache, dizziness, GI bleed, back pain, seizure, CVA, palpatations, mental health, musculoskeletal)? @ -Differential Dyspnea: Coronary syndrome, arrhythmia, tamponade, asthma, COPD, pulmonary embolism, pneumonia, pneumothorax, pulmonary effusion, anaphylaxis, diabetic ketoacidosis, flailed chest, pulmonary contusion, diaphragmatic rupture, anemia, neuromuscular, this is not meant to be an all-inclusive list. EKG interpreted by me (3pts min.). @ -As above X-rays interpreted by me (1pt min.). @ -Chest x-ray shows no acute cardiopulmonary process CT interpreted by me (1pt min.). @ -None done U/S interpreted by me (1pt. min.). @ -None done What testing was considered but not performed or refused? (CT, X-rays, U/S, labs)? Why? @ -None What meds were considered but not given or refused? Why? @ -None Did you discuss the management of the patient with other professionals (professionals i.e. , PA, DATA OPERATIONS MANAGER, lab, RT, psych nurse, social services specialist, post form remover, teacher, gunnery/ordnance officer, case therapist)? Give summary @ -EMH for admission Was smoking cessation discussed for >3mins.? @ -No Was critical care preformed (if so, how long)? @ -No Were there social determinants of health that impacted care today? How? (Homelessness, low income, unemployed, alcoholism, drug addiction, transportation, low edu. Level, literacy, decrease access to med. care, assisted, rehab)? @ -No Was there de-escalation of care discussed even if they declined (Discuss DNR or withdrawal of care, Hospice)? DNR status @ -No What co-morbidities impacted this encounter? (DM, HTN, Smoking, COPD, CAD, Cancer, CVA, ARF, Chemo, Hep., AIDS, mental health diagnosis, sleep apnea, morbid obesity)? @ -Asthma Was patient admitted / discharged? Hospital course, mention meds given and route, prescriptions, significant lab abnormalities, going to OR and other pertinent info. @ -Admitted patient is found to have acute asthma exacerbation she has failed outpatient treatment she has been on multiple steroids, antibiotics breathing treatments without significant improvement. Patient does have mild hypoxia. Patient admitted for pulmonary evaluation, continuation of steroids, treatments. Undiagnosed new problem with uncertain prognosis? @ -No Drug Therapy requiring intensive monitoring for toxicity (Heparin, Nitro, Insulin, Cardizem)? @ -No Were any procedures done? @ -No Diagnosis/symptom? @ -Asthma exacerbation Acute, or Chronic, or Acute on Chronic? @ -Acute Uncomplicated (without systemic symptoms) or Complicated (systemic symptoms)? @ -Complicated Side effects of treatment? @ -No Exacerbation, Progression, or Severe Exacerbation? @ -No Poses a threat to life or bodily function? How? (Chest pain, [place], [place], pneumonia, PE, COPD, DKA, ARF, appy, cholecystitis, CVA, Diverticulitis, Homicidal, Suicidal, threat to staff... and all critical care pts) @ -Asthma, risk of pulmonary function - Lab Data Result diagrams: 02/08/25 17:48 02/08/25 17:48 Lab Results 02/08/25 02/08/25 02/08/25 Range/Units 17:48 17:48 17:48 WBC 11.69 H (4.50-10.00) 10*3/uL RBC 4.51 (4.10-5.20) 10*6/uL Hgb 12.3 (12.0-15.0) g/dL Hct 37.1 L (37.2-46.3) % MCV 82.3 (80.0-97.0) fL MCH 27.3 (27.0-32.0) pg MCHC 33.2 (32.0-37.0) g/dL Plt Count 445 H (140-440) 10*3/uL MPV 9.7 (9.5-12.2) fL Immature Gran % (Auto) 0.3 % Neutrophils % 61.1 % Lymphocytes % 21.1 % Monocytes % 5.8 % Eosinophils % 10.8 % Basophils % 0.9 % Immature Gran # 0.03 (0.00-0.04) 10*3/uL Neutrophils # 7.15 (1.80-7.70) 10*3/uL Lymphocytes # 2.47 (0.90-5.00) 10*3/uL Monocytes # 0.68 (0.20-1.00) 10*3/uL Eosinophils # 1.26 H (0.04-0.35) 10*3/uL Basophils # 0.10 (0.00-0.10) 10*3/uL Sodium 139 (137-145) mmol/L Potassium 3.9 (3.5-5.1) mmol/L Chloride 105 (98-107) mmol/L Carbon Dioxide 23 (22-30) mmol/L Anion Gap 11 mmol/L BUN 13 (7-17) mg/dL Creatinine 0.69 (0.52-1.04) mg/dL Est GFR (CKD-EPI)AfAm >90 (>60 ml/min/1.73 sqM) Est GFR (CKD-EPI)NonAf >90 (>60 ml/min/1.73 sqM) Glucose 100 H (74-99) mg/dL Plasma Lactic Acid Misha 1.3 (0.7-2.0) mmol/L Calcium 9.8 (8.4-10.2) mg/dL Total Bilirubin 0.2 (0.2-1.3) mg/dL AST 20 (14-36) U/L ALT 15 (4-34) U/L Alkaline Phosphatase 92 (38-126) U/L Total Protein 7.4 (6.3-8.2) g/dL Albumin 4.6 (3.5-5.0) g/dL Disposition Clinical Impression: Acute asthma exacerbation Disposition: ADMITTED IP TO THIS HOSP Condition: Fair Referrals: Nonstaff,Physician [Primary Care Provider] - 1-2 days
[2025-02-08] MEDS: methylPREDNISolone SOD SUCCI 125 MG/2 ML VIAL IV STA (18:02)
[2025-02-08] MEDS: SODIUM CHLORIDE 0.9% 1,000 ML IV ONE (18:03)
[2025-02-08 18:04] LABS: Basophils % (A) 0.9 %; Eosinophils # (A) 1.26 10*3/uL (0.04-0.35); Eosinophils % (A) 10.8 %; HCT 37.1 % (37.2-46.3); HGB 12.3 g/dL (12.0-15.0); Lymphocytes # (A) 2.47 10*3/uL (0.90-5.00); Lymphocytes % (A) 21.1 %; MCH 27.3 pg (27.0-32.0); MCHC 33.2 g/dL (32.0-37.0); MCV 82.3 fL (80.0-97.0); Mean Platelet Volume 9.7 fL (9.5-12.2); Monocytes # (A) 0.68 10*3/uL (0.20-1.00); Monocytes % (A) 5.8 %; Neutrophils # (A) 7.15 10*3/uL (1.80-7.70); Neutrophils % (A) 61.1 %; Platelet Count 445 10*3/uL (140-440); RBC 4.51 10*6/uL (4.10-5.20); RDW 14.1 % (11.5-14.5); WBC 11.69 10*3/uL (4.50-10.00)
[2025-02-08] MEDS: IPRATROPIUM-ALBUTEROL 3 ML NEB INHALATION STA (18:12)
[2025-02-08 18:16] LABS: ALT 15 U/L (4-34); AST 20 U/L (14-36); African American GFR (CKD) >90 (>60 ml/min/1.73 sqM); Albumin 4.6 g/dL (3.5-5.0); Alkaline Phosphatase 92 U/L (38-126); Anion Gap 11 mmol/L; Blood Urea Nitrogen 13 mg/dL (7-17); Calcium 9.8 mg/dL (8.4-10.2); Carbon Dioxide 23 mmol/L (22-30); Chloride 105 mmol/L (98-107); Glucose 100 mg/dL (74-99); Non-African American GFR(CKD) >90 (>60 ml/min/1.73 sqM); Potassium 3.9 mmol/L (3.5-5.1); Sodium 139 mmol/L (137-145); Total Bilirubin 0.2 mg/dL (0.2-1.3); Total Protein 7.4 g/dL (6.3-8.2)
--- NOTE | 2025-02-08 18:26 | XR ---
EXAMINATION TYPE: XR chest 2V DATE OF EXAM: 02/08/2025 5:57 PM COMPARISON: Chest radiographs from 09/22/2018. CLINICAL INDICATION: Female, 49 years old with history of difficulty breathing; [facility] TECHNIQUE: XR chest 2V Frontal and lateral views of the chest. FINDINGS: Lungs/Pleura: There is no evidence of pleural effusion, focal consolidation, or pneumothorax. Pulmonary vascularity: Unremarkable. Heart/mediastinum: Cardiomediastinal silhouette is unremarkable. Musculoskeletal: No acute osseous pathology. Other findings: None IMPRESSION: No acute cardiopulmonary disease/process. [facility], , 02/08/2025 6:23 PM
[2025-02-08] MEDS ORDERED: NALOXONE 0.4 MG/ML 1 ML VIAL IVP PRN (19:02)
[2025-02-08] MEDS ORDERED: IPRATROPIUM-ALBUTEROL 3 ML NEB INHALATION PRN (19:02)
[2025-02-08] MEDS: IPRATROPIUM-ALBUTEROL 3 ML NEB INHALATION SCH (19:48)
[2025-02-08] MEDS ORDERED: CYCLOBENZAPRINE 5 MG TAB PO PRN (21:26)
[2025-02-08] MEDS ORDERED: ALBUTEROL NEBULIZED 2.5 MG/3 ML INHALATION PRN ×2 (21:26)
[2025-02-08] MEDS ORDERED: traZODone HCL 50 MG TAB PO PRN (21:26)
[2025-02-08] MEDS: TOPIRAMATE 25 MG TAB PO SCH (22:26)
[2025-02-08] MEDS: GABAPENTIN 300 MG CAP PO SCH (22:26)
[2025-02-09] MEDS: methylPREDNISolone SOD SUCCI 125 MG/2 ML VIAL IV SCH (00:57)
[2025-02-09 01:25] LABS: Influenza A Not Detected (Not Detectd); Influenza B Not Detected (Not Detectd); RSV Not Detected (Not Detectd)
--- NOTE | 2025-02-09 01:39 | P.CNPUL ---
History of Present Illness Consult date: 02/09/25 Requesting physician: Thang Mancia Reason for consult: asthma Chief complaint: Shortness of breath, wheezing, chest tightness, cough History of present illness: Patient is a 49-year-old female with past medical history significant for mild intermittent asthma, originally diagnosed as a child. She also has history of eczema and seasonal allergies. Denies any prior hospitalizations for asthma. Normally, uses her albuterol nebulizer and as needed albuterol inhaler only when sick.. She is a non-smoker, quit approximately 10 years ago. She also has history of hypertension, obesity, previous complicated appendicitis, depression. Was seen on outpatient basis at urgent care center, on December 22, and was told that she had pneumonia. She was treated with a combination of doxycycline for 10 days and prednisone 20 mg for 10 days. This did initially help her symptoms. She has also been using her albuterol nebulizer [id number], 4 times a day. Symptoms then returned/worsened, she went to her primary care provider, on February 01; and was started on another combination of antibiotics including cefdinir and doxycycline. She continues to have shortness of breath, wheezing, chest tightness, nonproductive dry cough. She has had intermittent low-grade fevers of 99.9 to 100.1 F while at home. Appetite has been poor. No nausea, vomiting, diarrhea. Came to the emergency department for evaluation yesterday evening. Workup including a chest x-ray which did not show any acute cardiopulmonary process. No pleural effusions, focal consolidations, or pneumothoraces. CBC: WBC count 11.7, hemoglobin 12.3, platelets 445. CMP unremarkable, electrolytes WDL, creatinine 0.69, glucose 100. Lactic 1.3. Started on a combination of DuoNebs and IV Solu-Medrol in the ED. Vital signs: Temperature 97.9 F, heart rate 68 bpm, blood pressure 113/77 mmHg, nontachypneic, SpO2 recorded at 97% on room air Review of Systems Constitutional: Reports chills, Reports fever, Denies fatigue, Denies night sweats, Denies poor appetite, Denies weight gain, Denies weight loss Ears, nose, mouth and throat: Denies headache, Denies nasal congestion, Denies nasal discharge, Denies post-nasal drip, Denies sinus pain, Denies sinus pressure, Denies sore throat, Denies voice changes Cardiovascular: Reports shortness of breath, Denies chest pain, Denies leg edema, Denies lightheadedness, Denies orthopnea, Denies palpitations, Denies paroxysmal nocturnal dyspnea, Denies syncope Respiratory: Reports as per HPI Gastrointestinal: Reports as per HPI Genitourinary: Denies dysuria, Denies flank pain, Denies hematuria, Denies urinary frequency Musculoskeletal: Reports low back pain (Chronic, receives steroid injections), Denies limitation of motion Integumentary: Denies rash, Denies wounds Neurological: Denies seizures, Denies syncope Past Medical History Past Medical History: Asthma, Hypertension Additional Past Medical History / Comment(s): bulging disc to lumbar, seasonal allergies, insomnia, pre diabetic, on topamax to curve appatiate History of Any Multi-Drug Resistant Organisms: None Reported Past Surgical History: Adenoidectomy, Appendectomy, Tonsillectomy Additional Past Surgical History / Comment(s): eye surgery Past Psychological History: Depression Smoking Status: Former smoker Past Alcohol Use History: Occasional Past Drug Use History: None Reported Medications and Allergies Home Medications Medication Instructions Recorded Confirmed Type Levocetirizine Dihydrochloride 5 mg PO DAILY 07/23/15 02/08/25 History [Xyzal] Sertraline HCl [Zoloft] 100 mg PO DAILY 07/23/15 02/08/25 History Gabapentin 600 mg PO BID 07/01/24 02/08/25 History Naproxen [Naprosyn] 500 mg PO BID PRN 07/01/24 02/08/25 History Topiramate [Topamax] 50 mg PO HS 07/01/24 02/08/25 History atenoloL 25 mg PO DAILY 07/01/24 02/08/25 History traZODone HCL [Desyrel] 50 - 100 mg PO HS PRN 07/01/24 02/08/25 History Albuterol Inhaler [Ventolin Hfa 2 puff INHALATION RT-Q4H PRN 02/08/25 02/08/25 History Inhaler] Albuterol Nebulized [Ventolin 2.5 mg INHALATION RT-Q4H PRN 02/08/25 02/08/25 History Nebulized] Cyclobenzaprine [Flexeril] 5 - 10 mg PO BID PRN 02/08/25 02/08/25 History EPINEPHrine (Auto Inject) [Epipen] 0.3 mg IM ONCE PRN 02/08/25 02/08/25 History Omeprazole 20 mg PO DAILY 02/08/25 02/08/25 History Allergies Allergy/AdvReac Type Severity Reaction Status Date / Time grass pollen Allergy Unknown Verified 02/08/25 19:48 peas Allergy Unknown Verified 02/08/25 19:48 shellfish derived [Shellfish] Allergy Anaphylaxis Verified 02/08/25 19:48 sunflower oil Allergy Anaphylaxis Verified 02/08/25 19:48 Physical Exam Vitals: Vital Signs Temp Pulse Pulse Resp BP BP Pulse Ox 02/08/25 20:05 97.9 F 68 18 113/77 97 02/08/25 20:00 98.2 F 99 17 148/87 97 02/08/25 18:29 102 H 02/08/25 18:20 100 02/08/25 18:12 98 02/08/25 17:13 98.1 F 108 H 22 129/81 94 L Intake and Output 02/08/25 02/08/25 02/09/25 14:59 22:59 06:59 Other: # Voids 0 Weight 104.326 kg GENERAL EXAM: Alert, 49-year-old obese female, fairly comfortable in no apparent distress. HEAD: Normocephalic and atraumatic EYES: Normal reaction of pupils, equal size. NOSE: Clear with pink turbinates. No polyposis THROAT: No erythema or exudates. NECK: No masses, no JVD. CHEST: No chest wall deformity. LUNGS: Equal air entry with expiratory wheezing heard bilaterally throughout. On room air. No conversational dyspnea or accessory muscle use. CVS: S1 and S2 normal with no audible murmur, regular rhythm. No extra heart sounds ABDOMEN: No hepatosplenomegaly, active bowel sounds, no guarding or rigidity. SPINE: No scoliosis or deformity SKIN: No rashes or lesions CENTRAL NERVOUS SYSTEM: No focal deficits, tone is normal in all 4 extremities. EXTREMITIES: There is no peripheral edema, clubbing, or cyanosis. Peripheral pulses are intact. Results - Laboratory Findings CBC and BMP: 02/08/25 17:48 02/08/25 17:48 Abnormal lab findings: Abnormal Labs 02/08/25 02/08/25 17:48 17:48 WBC 11.69 H Hct 37.1 L Plt Count 445 H Eosinophils # 1.26 H Glucose 100 H - Diagnostic Findings Chest x-ray: image reviewed Assessment and Plan Assessment: Acute asthma exacerbation Acute dyspnea, secondary to above Chronic seasonal allergies History of atopic dermatitis Hypertension Obesity, with a BMI of 37.1 kg/m Depression History of appendectomy Plan: Patient's medications, labs, chest x-ray reviewed CXR: No focal infiltrates, pleural effusions, pneumothoraces Check viral 4 Plex On room air Continue combination of DuoNebs and IV Solu-Medrol Add Symbicort Asthma clearly in exacerbation, not ready for discharge. Case to be reviewed with Dr. Pak later this morning. I have personally seen and examined the patient, performed the documentation and the assessment and plan as written. Number of minutes spent on the visit:02/09/2025, the patient is being seen in joint evaluation with the nurse practitioner this evaluation was done and 31 minutes. Patient is actively bronchospastic and wheezy and she has a congested cough. Not producing any significant sputum. She was hospitalized for an acute tracheobronchitis and asthma exacerbation.Have viral screen came back negative. Electrolytes all within normal limits. She is on DuoNeb updrafts, Symbicort maintenance and IV Solu-Medrol. Afebrile. Slightly tachycardic. She is on room air oxygen with a pulse ox of 97%. Will continue same management will continue to follow and she will obviously need outpatient monitoring and management of her chronic bronchial asthma. No other issues for now. Reviewed the chest x-ray done yesterday and it shows no acute cardiopulmonary abnormalities. Will follow. Time with Patient: Greater than 30
[2025-02-09] MEDS: PANTOPRAZOLE 40 MG TABLET PO SCH (06:01)
[2025-02-09] MEDS: SYMBICORT 160-4.5 MCG INHALER INHALATION SCH (07:44)
[2025-02-09] MEDS: SERTRALINE 100 MG TAB PO SCH (08:30)
[2025-02-09] MEDS: atenoloL 25 MG TAB PO SCH (08:30)
[2025-02-09] MEDS: LORATADINE 10 MG TAB PO SCH (08:30)
[2025-02-09] MEDS: NAPROXEN 250 MG TAB PO PRN (10:10)
[2025-02-09] MEDS: ACETAMINOPHEN TAB 325 MG TAB PO PRN (12:09)
[2025-02-09] MEDS: PANTOPRAZOLE 40 MG/10 ML VIAL IVP SCH (12:46)
[2025-02-09] MEDS: CALCIUM CARBONATE 500 MG CHEWABLE PO PRN (12:46)
--- NOTE | 2025-02-09 17:08 | P.HPIM ---
History of Present Illness H&P Date: 02/09/25 Patient is a 49-year-old female with history of asthma, hypertension, depression and anxiety came to the clinic with a complaint of shortness of breath, wheezing and chest tightness which has worsened from couple of days. Patient has been endorsing respiratory symptoms since 2 to 3 months. She has been evaluated by healthcare professional in outpatient setting at least twice. She did go to urgent care in November 2024 and was treated for acute bronchitis with antibiotics and steroids. Patient did feel better briefly before symptoms worsening again. Patient recently went to urgent care with complaints of cough, shortness of breath and chest x-ray was performed which showed pneumonia in the left side and was treated with doxycycline and cefdinir which she finished on February 07. However she continues to feel shortness of breath, chest tightness, wheezing and dry cough. She has been using nebulizer [id number] at home. However she decided to come to the ER after she talked to her PCP who was concerned that her symptoms are not improving despite 2 rounds of steroids and antibiotics in the past couple months., Additionally patient reports he has seasonal allergies and typically spring season is the worst in terms of her symptoms. Normally she would take [id number] antihistamine which would help relieve her symptoms at this time her respiratory symptoms have been much worse. She has a diagnosed with asthma as a child and have been asymptomatic till now. Patient has significant smoking history of 1 pack/day for 25 years.. She has not been smoking since 2014. She has not established with a nursing home manager. ED course: Patient received DuoNebs and IV steroids and IV fluids in the ER. Lab work shows WBC 11.69, platelet count 445, hemoglobin 12.3, chemistries unre markable. Viral serologies unremarkable. Chest x-ray shows no acute cardiac pulmonary process. EKG shows normal sinus rhythm with ventricular rate of 98 bpm, KY interval 168 ms, QRS duration 93 ms, QTc 421 ms, no ST elevation noted. Normal R wave progression noted. Review of systems: Pertinent positives and negatives as discussed in HPI, a complete review of systems was performed and all other systems are negative. Physical examination: Vital signs reviewed General: non toxic, no distress, appears at stated age, morbid obesity Derm: no unusual rashes/lesions, warm Head: atraumatic, normocephalic, symmetric Eyes: EOMI, no lid lag, anicteric sclera, pupils equal round reactive to light ENT: Nose and ears atraumatic Neck: No cervical lymphadenopathy, trachea midline, supple Mouth: no lip lesion, mucus membranes moist Cardiovascular: S1S2 reg, no murmur, positive dorsalis pedis pulse bilateral, no edema Lungs: Bilateral expiratory wheezing, no rhonchi, no rales, no accessory muscle use Abdominal: soft, nontender to palpation, no guarding Ext: muscle strength 5 out of 5 in all 4 extremities grossly, no gross muscle atrophy, no contractures, Neuro: CN II-XI grossly intact, no gross focal neuro deficits Psych: Alert, oriented, appropriate affect Assessment/Plan: This is a 49-year-old female with history of asthma, hypertension, depression and anxiety came to the clinic with a complaint of shortness of breath, wheezing and chest tightness which worsened from couple of days. . Case was discussed with the Emergency Room provider and decision was made to admit the patient for asthma exacerbation Labs and images: Lab work shows WBC 11.69, platelet count 445, hemoglobin 12.3, chemistries unremarkable. Viral serologies unremarkable. Chest x-ray shows no acute cardiac pulmonary process. EKG shows normal sinus rhythm with ventricular rate of 98 bpm, KY interval 168 ms, QRS duration 93 ms, QTc 421 ms, no ST elevation noted. Normal R wave progression noted. Active: #Acute asthma exacerbation #History of seasonal allergies #mild leukocytosis likely reactive Patient received DuoNebs and IV steroids and IV fluids in the ER. Continue with DuoNebs as scheduled [id number] Continue with IV Solu-Medrol 60 mg every 6 hour Pulmonology has been consulted, patient was started on Symbicort and Singulair #History of anxiety and depression Resume Zoloft 100 mg p.o. daily, Chronic conditions: Insomnia, neuropathy, Resume home medications. DVT prophylaxis: None GI prophylaxis: None F: None E: Replete as needed N: Regular A: Ambulatory at baseline The patient is admitted with an anticipated less than than 2 midnight stay for evaluation of asthma exacerbation CODE STATUS: Full code Discussed with: Patient Anticipated discharge place: Pending clinical course Dictation was produced using [email or web address] software. Please excuse any grammatical, word or spelling errors. Past Medical History Past Medical History: Asthma, Hypertension Additional Past Medical History / Comment(s): bulging disc to lumbar, seasonal allergies, insomnia, pre diabetic, on topamax to curve appatiate History of Any Multi-Drug Resistant Organisms: None Reported Past Surgical History: Adenoidectomy, Appendectomy, Tonsillectomy Additional Past Surgical History / Comment(s): eye surgery Past Psychological History: Depression Smoking Status: Former smoker Past Alcohol Use History: Occasional Past Drug Use History: None Reported Medications and Allergies Home Medications Medication Instructions Recorded Confirmed Type Levocetirizine Dihydrochloride 5 mg PO DAILY 07/23/15 02/08/25 History [Xyzal] Sertraline HCl [Zoloft] 100 mg PO DAILY 07/23/15 02/08/25 History Gabapentin 600 mg PO BID 07/01/24 02/08/25 History Naproxen [Naprosyn] 500 mg PO BID PRN 07/01/24 02/08/25 History Topiramate [Topamax] 50 mg PO HS 07/01/24 02/08/25 History atenoloL 25 mg PO DAILY 07/01/24 02/08/25 History traZODone HCL [Desyrel] 50 - 100 mg PO HS PRN 07/01/24 02/08/25 History Albuterol Inhaler [Ventolin Hfa 2 puff INHALATION RT-Q4H PRN 02/08/25 02/08/25 History Inhaler] Cyclobenzaprine [Flexeril] 5 - 10 mg PO BID PRN 02/08/25 02/08/25 History EPINEPHrine (Auto Inject) [Epipen] 0.3 mg IM ONCE PRN 02/08/25 02/08/25 History Omeprazole 20 mg PO DAILY 02/08/25 02/08/25 History Albuterol Nebulized [Ventolin 2.5 mg INHALATION RT-Q4H PRN #1 02/11/25 Rx Nebulized] pack Budesonide-Formot 160-4.5 Mcg 2 puff INHALATION RT-BID #1 each 02/11/25 Rx [Symbicort 160-4.5 Mcg Inhaler] Montelukast [Singulair] 10 mg PO HS #14 tab 02/11/25 Rx guaiFENesin-Coden 100-10MG/5ML 10 ml PO Q6HR PRN #1 unit 02/11/25 Rx [Robitussin AC] predniSONE 10 mg PO DAILY #20 tab 02/11/25 Rx Allergies Allergy/AdvReac Type Severity Reaction Status Date / Time grass pollen Allergy Unknown Verified 02/08/25 19:48 peas Allergy Unknown Verified 02/08/25 19:48 shellfish derived [Shellfish] Allergy Anaphylaxis Verified 02/08/25 19:48 sunflower oil Allergy Anaphylaxis Verified 02/08/25 19:48 Physical Exam Vitals: Vital Signs Temp Pulse Pulse Resp BP BP Pulse Ox 02/09/25 08:02 103 H 02/09/25 07:44 104 H 94 L 02/09/25 02:00 98 F 99 17 136/81 95 02/08/25 20:05 97.9 F 68 18 113/77 97 02/08/25 20:00 98.2 F 99 17 148/87 97 02/08/25 18:29 102 H 02/08/25 18:20 100 02/08/25 18:12 98 02/08/25 17:13 98.1 F 108 H 22 129/81 94 L FiO2 02/09/25 08:02 02/09/25 07:44 21 02/09/25 02:00 02/08/25 20:05 02/08/25 20:00 02/08/25 18:29 02/08/25 18:20 02/08/25 18:12 02/08/25 17:13 Intake and Output 02/08/25 02/09/25 02/09/25 22:59 06:59 14:59 Other: # Voids 0 1 Weight 104.326 kg Results CBC & Chem 7: 02/11/25 06:46 02/08/25 17:48 Labs: Abnormal Lab Results - Last 24 Hours (Table) 02/08/25 02/08/25 Range/Units 17:48 17:48 WBC 11.69 H (4.50-10.00) 10*3/uL Hct 37.1 L (37.2-46.3) % Plt Count 445 H (140-440) 10*3/uL Eosinophils # 1.26 H (0.04-0.35) 10*3/uL Glucose 100 H (74-99) mg/dL Thrombosis Risk Factor Assmnt - Choose All That Apply Any of the Below Risk Factors Present?: Yes Each Factor Represents 1 point: Age 41-60 years, Obesity (BMI >25) Other Risk Factors: No Thrombosis Risk Factor Assessment Total Risk Factor Score: 2 Thrombosis Risk Factor Assessment Level: Low Risk Assessment and Plan Assessment: Attestation Attestation/ Assistant Teaching Professor Note: Attestation to History and physical, Participation (I saw and evaluated the patient with the Resident, and I reviewed and discussed the patient with the Resident and agree with the Resident's findings and plans as documented above., management reviewed and discussed), I agree with findings & plan, Provider Signature (GAMALIEL ADAN, BILLY Helms Time with Patient: Greater than 30
[2025-02-09] MEDS: MONTELUKAST 10 MG TAB PO SCH (20:13)
[2025-02-09] MEDS: HEPARIN SODIUM,PORCINE 5,000 UNIT/ML 1 ML VIAL SQ SCH (23:48)
[2025-02-10] MEDS: PANTOPRAZOLE 40 MG TABLET PO SCH (06:35)
[2025-02-10 07:20] LABS: Basophils # (A) 0.02 10*3/uL (0.00-0.10); Basophils % (A) 0.1 %; HCT 33.5 % (37.2-46.3); Lymphocytes # (A) 1.81 10*3/uL (0.90-5.00); MCH 27.3 pg (27.0-32.0); MCHC 32.8 g/dL (32.0-37.0); MCV 83.1 fL (80.0-97.0); Mean Platelet Volume 9.7 fL (9.5-12.2); Monocytes # (A) 0.65 10*3/uL (0.20-1.00); Monocytes % (A) 2.5 %; Neutrophils # (A) 23.12 10*3/uL (1.80-7.70); Neutrophils % (A) 88.7 %; Platelet Count 417 10*3/uL (140-440); RBC 4.03 10*6/uL (4.10-5.20); RDW 14.5 % (11.5-14.5); WBC 26.03 10*3/uL (4.50-10.00)
[2025-02-10] MEDS ORDERED: guaiFENesin-Coden 100-10MG/5ML 10 ML CUP PO PRN (11:10)
[2025-02-10] MEDS: guaiFENesin-Coden 100-10MG/5ML 10 ML CUP PO STA (12:10)
--- NOTE | 2025-02-10 16:06 | P.PN ---
Subjective Progress Note Date: 02/10/25 Hospital course: Patient is a 49-year-old female with history of asthma, hypertension, depression and anxiety came to the clinic with a complaint of shortness of breath, wheezing and chest tightness which has worsened from couple of days. Patient has been endorsing respiratory symptoms since 2 to 3 months. She has been evaluated by healthcare professional in outpatient setting at least twice. She did go to urgent care in November 2024 and was treated for acute bronchitis with antibiotics and steroids. Patient did feel better briefly before symptoms worsening again. Patient recently went to urgent care with complaints of cough, shortness of breath and chest x-ray was performed which showed pneumonia in the left side and was treated with doxycycline and cefdinir which she finished on February 07. However she continues to feel shortness of breath, chest tightness, wheezing and dry cough. She has been using nebulizer [id number]-[id number] at home. However she decided to come to the ER after she talked to her PCP who was concerned that her symptoms are not improving despite 2 rounds of steroids and antibiotics in the past couple months., Additionally patient reports he has seasonal allergies and typically spring season is the worst in terms of her symptoms. Normally she would take preb-mxc-[id number] antihistamine which would help relieve her symptoms at this time her respiratory symptoms have been much worse. She has a diagnosed with asthma as a child and have been asymptomatic till now. Patient has significant smoking history of 1 pack/day for 25 years.. She has not been smoking since 2014. She has not established with a patented hogshead assembler. ED course: Patient received DuoNebs and IV steroids and IV fluids in the ER. Lab work shows WBC 11.69, platelet count 445, hemoglobin 12.3, chemistries unremarkable. Viral serologies unremarkable. Chest x-ray shows no acute cardiac pulmonary process. EKG shows normal sinus rhythm with ventricular rate of 98 bpm, [place] interval 168 ms, QRS duration 93 ms, QTc 421 ms, no ST elevation noted. Normal R wave progression noted. 02/10/2025: Patient seen and examined at the bedside. No acute event overnight. Patient continues to feel mildly short of breath with chest tightness and wheezing. Also endorsing mild dry cough. Otherwise no chest pain or swelling of legs. Patient continues to be on DuoNebs and IV steroids. Lab work today shows WBC 26, hemoglobin 11, platelet count 417. Patient to be transferred to surgical floor. Physical examination: Vital signs reviewed General: non toxic, no distress, appears at stated age, morbid obesity Derm: no unusual rashes/lesions, warm Head: atraumatic, normocephalic, symmetric Eyes: EOMI, no lid lag, anicteric sclera, pupils equal round reactive to light ENT: Nose and ears atraumatic Neck: No cervical lymphadenopathy, trachea midline, supple Mouth: no lip lesion, mucus membranes moist Cardiovascular: S1S2 reg, no murmur, positive dorsalis pedis pulse bilateral, no edema Lungs: Bilateral expiratory wheezing, no rhonchi, no rales, no accessory muscle use Abdominal: soft, nontender to palpation, no guarding Ext: muscle strength 5 out of 5 in all 4 extremities grossly, no gross muscle atrophy, no contractures, Neuro: CN II-XI grossly intact, no gross focal neuro deficits Psych: Alert, oriented, appropriate affect Assessment/Plan: This is a 49-year-old female with history of asthma, hypertension, depression and anxiety came to the clinic with a complaint of shortness of breath, wheezing and chest tightness which worsened from couple of days. . Case was discussed with the Emergency Room provider and decision was made to admit the patient for asthma exacerbation #Acute asthma exacerbation #History of seasonal allergies #mild leukocytosis likely reactive Continue with DuoNebs as scheduled [id number] Continue with IV Solu-Medrol 60 mg every 6 hour Pulmonology has been consulted, patient was started on Symbicort and Singulair Add Robitussin for cough Patient to be transferred to surgical floor [facility] #History of anxiety and depression Resume Zoloft 100 mg p.o. daily, Chronic conditions: Insomnia, neuropathy, Resume home medications. DVT prophylaxis: None GI prophylaxis: None F: None E: Replete as needed N: Regular A: Ambulatory at baseline CODE STATUS: Full code Discussed with: Patient Anticipated discharge place: Pending clinical course Dictation was produced using [employer] dictation software. Please excuse any grammatical, word or spelling errors. Objective - Vital Signs Vital signs: Vital Signs Temp 99 F 02/10/25 14:30 Pulse 65 02/10/25 14:30 Resp 17 02/10/25 15:01 BP 108/74 02/10/25 14:30 Pulse Ox 96 02/10/25 14:30 FiO2 21 02/09/25 07:44 Intake & Output 02/09/25 02/10/25 02/10/25 18:59 06:59 18:59 Intake Total 100 200 Balance 100 200 Intake: Oral 100 200 Other: # Voids 1 1 1 # Bowel Movements 0 0 - Labs CBC & Chem 7: 02/11/25 06:46 02/08/25 17:48 Labs: Abnormal Lab Results - Last 24 Hours (Table) 02/10/25 Range/Units 06:56 WBC 26.03 H (4.50-10.00) 10*3/uL RBC 4.03 L (4.10-5.20) 10*6/uL Hgb 11.0 L (12.0-15.0) g/dL Hct 33.5 L (37.2-46.3) % Immature Gran # 0.43 H (0.00-0.04) 10*3/uL Neutrophils # 23.12 H (1.80-7.70) 10*3/uL Eosinophils # 0.00 L (0.04-0.35) 10*3/uL Microbiology - Last 24 Hours (Table) 02/08/25 17:48 Blood Culture - Preliminary Blood Assessment and Plan Assessment: Attestation Attestation/ Rod Placer Note: Attestation to Progress Note, Participation (I saw and evaluated the patient with the Resident, and I reviewed and discussed the patient with the Resident and agree with the Resident's findings and plans as documented above., management reviewed and discussed), I agree with findings & plan, Provider Signature (GAMALIEL ADAN, BILLY Helms
[2025-02-10] MEDS: HYDROcodone/APAP 5-325MG 1 EACH TAB PO STA (18:15)
--- NOTE | 2025-02-10 22:39 | P.PN ---
Subjective Progress Note Date: 02/10/25 Patient is a 49-year-old female with past medical history significant for mild intermittent asthma, originally diagnosed as a child. She also has history of eczema and seasonal allergies. Denies any prior hospitalizations for asthma. Normally, uses her albuterol nebulizer and as needed albuterol inhaler only when sick.. She is a non-smoker, quit approximately 10 years ago. She also has history of hypertension, obesity, previous complicated appendicitis, depression. Was seen on outpatient basis at urgent care center, on December 22, and was told that she had pneumonia. She was treated with a combination of doxycycline for 10 days and prednisone 20 mg for 10 days. This did initially help her symptoms. She has also been using her albuterol nebulizer ecyykh-ssz-tqdkh, 4 times a day. Symptoms then returned/worsened, she went to her primary care provider, on February 01; and was started on another combination of antibiotics including cefdinir and doxycycline. She continues to have shortness of breath, wheezing, chest tightness, nonproductive dry cough. She has had intermittent low-grade fevers of 99.9 to 100.1 F while at home. Appetite has been poor. No nausea, vomiting, diarrhea. Came to the emergency department for evaluation yesterday evening. Workup including a chest x-ray which did not show any acute cardiopulmonary process. No pleural effusions, focal consolidations, or pneumothoraces. CBC: WBC count 11.7, hemoglobin 12.3, platelets 445. CMP unremarkable, electrolytes WDL, creatinine 0.69, glucose 100. Lactic 1.3. Started on a combination of DuoNebs and IV Solu-Medrol in the ED. Vital signs: Temperature 97.9 F, heart rate 68 bpm, blood pressure 113/77 mmHg, nontachypneic, SpO2 recorded at 97% on room air 02/10/2025, the patient continues to have cough congestion chest tightness or wheezing. Limited improvement over the past 24 hours. Remains on room air oxygen. Remains on bronchodilators. Remains on Symbicort and IV Solu-Medrol. White cell count is up to 26 with a hemoglobin of 11. Viral screen is negative. No chills. No fever. No pleurisy. No hemoptysis. There is some emotional lability probably related to systemic steroid use. Objective - Vital Signs Vital signs: Vital Signs Temp 98.2 F 02/10/25 19:42 Pulse 90 02/10/25 20:46 Resp 16 02/10/25 19:42 BP 156/76 02/10/25 19:42 Pulse Ox 96 02/10/25 19:42 FiO2 21 02/09/25 07:44 Intake & Output 02/10/25 02/10/25 02/11/25 06:59 18:59 06:59 Intake Total 200 Balance 200 Intake: Oral 200 Other: # Voids 1 1 2 # Bowel Movements 0 - Exam GENERAL EXAM: Alert, 49-year-old obese female, fairly comfortable in no apparent distress. HEAD: Normocephalic and atraumatic EYES: Normal reaction of pupils, equal size. NOSE: Clear with pink turbinates. No polyposis THROAT: No erythema or exudates. NECK: No masses, no JVD. CHEST: No chest wall deformity. LUNGS: Equal air entry with expiratory wheezing heard bilaterally throughout. On room air. No conversational dyspnea or accessory muscle use. CVS: S1 and S2 normal with no audible murmur, regular rhythm. No extra heart sounds ABDOMEN: No hepatosplenomegaly, active bowel sounds, no guarding or rigidity. SPINE: No scoliosis or deformity SKIN: No rashes or lesions CENTRAL NERVOUS SYSTEM: No focal deficits, tone is normal in all 4 extremities. EXTREMITIES: There is no peripheral edema, clubbing, or cyanosis. Peripheral pulses are intact. - Labs CBC & Chem 7: 02/10/25 06:56 02/08/25 17:48 Labs: Abnormal Lab Results - Last 24 Hours (Table) 02/10/25 Range/Units 06:56 WBC 26.03 H (4.50-10.00) 10*3/uL RBC 4.03 L (4.10-5.20) 10*6/uL Hgb 11.0 L (12.0-15.0) g/dL Hct 33.5 L (37.2-46.3) % Immature Gran # 0.43 H (0.00-0.04) 10*3/uL Neutrophils # 23.12 H (1.80-7.70) 10*3/uL Eosinophils # 0.00 L (0.04-0.35) 10*3/uL Microbiology - Last 24 Hours (Table) 05/14/25 17:48 Blood Culture - Preliminary Blood Assessment and Plan Assessment: Acute asthma exacerbation Acute dyspnea, secondary to above Acute leukocytosis, likely steroid-induced Chronic seasonal allergies History of atopic dermatitis Hypertension Obesity, with a BMI of 37.1 kg/m Depression History of appendectomy Plan: Limited improvement compared to yesterday Continues to be bronchospastic and wheezy We will continue same treatment for now Check viral 4 Plex Monitor white cell count Repeat chest x-ray in the morning Continue combination of DuoNebs and IV Solu-Medrol Continue Symbicort Remains on room air oxygen Will follow \ Time with Patient: Greater than 30
--- NOTE | 2025-02-11 07:00 | XR ---
EXAMINATION TYPE: XR chest 1V DATE OF EXAM: 02/11/2025 COMPARISON: 02/08/2025 CLINICAL INDICATION: Female, 49 years old with history of asthma exacerbation; TECHNIQUE: Single frontal view of the chest is obtained. FINDINGS: There is no focal air space opacity, pleural effusion, or pneumothorax seen. The cardiac silhouette size is within normal limits. The osseous structures are intact. IMPRESSION: No acute cardiopulmonary disease. No interval change. [facility], , 02/11/2025 6:58 AM
[2025-02-11 07:15] LABS: Basophils # (A) 0.03 10*3/uL (0.00-0.10); Basophils % (A) 0.1 %; HCT 34.2 % (37.2-46.3); HGB 11.2 g/dL (12.0-15.0); Lymphocytes # (A) 1.69 10*3/uL (0.90-5.00); Lymphocytes % (A) 6.8 %; MCH 27.4 pg (27.0-32.0); MCHC 32.7 g/dL (32.0-37.0); MCV 83.6 fL (80.0-97.0); Mean Platelet Volume 9.8 fL (9.5-12.2); Monocytes # (A) 0.52 10*3/uL (0.20-1.00); Monocytes % (A) 2.1 %; Neutrophils # (A) 22.28 10*3/uL (1.80-7.70); Neutrophils % (A) 89.6 %; Platelet Count 445 10*3/uL (140-440); RBC 4.09 10*6/uL (4.10-5.20); RDW 14.6 % (11.5-14.5); WBC 24.88 10*3/uL (4.50-10.00)
[2025-02-11 08:04] VITALS: BP 170/82; RESP 15; TEMP 98.3
--- NOTE | 2025-02-11 11:17 | P.DS ---
Providers Date of admission: 02/08/25 19:05 Attending physician: Jessa Mc Consults: 02/08/25 19:02 Consult Physician Routine Consulting Provider: Garfield Pak Consult Reason/Comments: asthma exacerbation Do you want consulting provider notified?: Yes Primary care physician: Physician Nonstaff Hospital Course: Discharge Diagnosis: #Acute asthma exacerbation, resolved #History of chronic seasonal allergies #History of anxiety depression Hospital Course: Patient is a 49-year-old female with history of asthma, hypertension, depression and anxiety came to the clinic with a complaint of shortness of breath, wheezing and chest tightness which has worsened from couple of days. Patient has been endorsing respiratory symptoms since 2 to 3 months. She has been evaluated by healthcare professional in outpatient setting at least twice. She did go to urgent care in November 2024 and was treated for acute bronchitis with antibiotics and steroids. Patient did feel better briefly before symptoms worsening again. Patient recently went to urgent care with complaints of cough, shortness of breath and chest x-ray was performed which showed pneumonia in the left side and was treated with doxycycline and cefdinir which she finished on February 07. However she continues to feel shortness of breath, chest tightness, wheezing and dry cough. She has been using nebulizer [id number] at home. However she decided to come to the ER after she talked to her PCP who was concerned that her symptoms are not improving despite 2 rounds of steroids and antibiotics in the past couple months., Additionally patient reports he has seasonal allergies and typically spring season is the worst in terms of her symptoms. Normally she would take [id number] antihistamine which would help relieve her symptoms at this time her respiratory symptoms have been much worse. She has a diagnosed with asthma as a child and have been asymptomatic till now. Patient has significant smoking history of 1 pack/day for 25 years.. She has not been smoking since 2014. She has not established with a varnish maker helper. ED course: Patient received DuoNebs and IV steroids and IV fluids in the ER. Lab work shows WBC 11.69, platelet count 445, hemoglobin 12.3, chemistries unremarkable. Viral serologies unremarkable. Chest x-ray shows no acute cardiac pulmonary process. EKG shows normal sinus rhythm with ventricular rate of 98 bpm, WV interval 168 ms, QRS duration 93 ms, QTc 421 ms, no ST elevation noted. Normal R wave progression noted. Pulmonology has been following patient during this hospital course. In the meantime patient continues to receive IV steroids and DuoNebs. Patient reporting improvement in her shortness of breath and chest tightness. Physical examination shows marked improvement with very minimal wheezing. Repeat chest x-ray shows no acute cardiopulmonary process. Patient was complaining of dry nonproductive cough and which improved with Robitussin AC. Patient is otherwise hemodynamically stable and optimized for discharge. Patient is not on supplemental oxygen. Patient will be discharged on Singulair, Symbicort and tapering dose of prednisone. Patient to follow-up with the her PCP and pulmonology. Discharge disposition: Home Vital signs reviewed. Gen: in no apparent distress, resting comfortably in bed Eyes: PERRLA, EOMI, no scleral injection or icterus HENT: normocephalic, atraumatic, good hearing acuity, moist mucous membranes Neck: full range of motion Resp: CTAB, no rales, rhonchi, or wheezes CVS: normal S1 and S2, no murmurs, rubs or gallops, no edema GI: soft, NTTP, ND, no hepatosplenomegaly : no suprapubic tenderness, no CVAT, holman catheter [is/not] present MSK: no clubbing, no cyanosis, no noted contractures of extremities Skin: no noted rashes, petechiae; temperature of skin is appropriate Neuro: moving all extremities without signs of weakness, CN II-XII intact Psych: cooperative, euthymic mood, insight and judgment intact Dictation was produced using [employer] dictation software. Please excuse any grammatical, word or spelling errors. Attestation Attestation/ Mail Clerk Bills Note: Attestation to D/C Summary, Participation (I saw and evaluated the patient with the Resident, and I reviewed and discussed the patient with the Resident and agree with the Resident's findings and plans as documented above., immediately available, management reviewed and discussed), I agree with findings & plan, Provider Signature (GAMALIEL ADAN, BILLY Helms Patient Condition at Discharge: Fair Plan - Discharge Summary Discharge Rx Participant: No New Discharge Prescriptions: New Montelukast [Singulair] 10 mg PO HS #14 tab Budesonide-Formot 160-4.5 Mcg [Symbicort 160-4.5 Mcg Inhaler] 2 puff INHALATION RT-BID #1 each predniSONE 10 mg PO DAILY #20 tab guaiFENesin-Coden 100-10MG/5ML [Robitussin AC] 10 ml PO Q6HR PRN #1 unit PRN Reason: Cough Continue Sertraline HCl [Zoloft] 100 mg PO DAILY Levocetirizine Dihydrochloride [Xyzal] 5 mg PO DAILY traZODone HCL [Desyrel] 50 - 100 mg PO HS PRN PRN Reason: Insomnia atenoloL 25 mg PO DAILY Naproxen [Naprosyn] 500 mg PO BID PRN PRN Reason: Pain EPINEPHrine (Auto Inject) [Epipen] 0.3 mg IM ONCE PRN PRN Reason: Anaphylaxis Albuterol Inhaler [Ventolin Hfa Inhaler] 2 puff INHALATION RT-Q4H PRN PRN Reason: Shortness Of Breath Cyclobenzaprine [Flexeril] 5 - 10 mg PO BID PRN PRN Reason: Muscle Spasm Topiramate [Topamax] 50 mg PO HS Gabapentin 600 mg PO BID Omeprazole 20 mg PO DAILY Albuterol Nebulized [Ventolin Nebulized] 2.5 mg INHALATION RT-Q4H PRN #1 pack PRN Reason: Shortness Of Breath Discharge Medication List Levocetirizine Dihydrochloride [Xyzal] 5 mg PO DAILY 07/23/15 [History] Sertraline HCl [Zoloft] 100 mg PO DAILY 07/23/15 [History] Gabapentin 600 mg PO BID 07/01/24 [History] Naproxen [Naprosyn] 500 mg PO BID PRN 07/01/24 [History] Topiramate [Topamax] 50 mg PO HS 07/01/24 [History] atenoloL 25 mg PO DAILY 07/01/24 [History] traZODone HCL [Desyrel] 50 - 100 mg PO HS PRN 07/01/24 [History] Albuterol Inhaler [Ventolin Hfa Inhaler] 2 puff INHALATION RT-Q4H PRN 02/08/25 [History] Cyclobenzaprine [Flexeril] 5 - 10 mg PO BID PRN 02/08/25 [History] EPINEPHrine (Auto Inject) [Epipen] 0.3 mg IM ONCE PRN 02/08/25 [History] Omeprazole 20 mg PO DAILY 02/08/25 [History] Albuterol Nebulized [Ventolin Nebulized] 2.5 mg INHALATION RT-Q4H PRN #1 pack 02/11/25 [Rx] Budesonide-Formot 160-4.5 Mcg [Symbicort 160-4.5 Mcg Inhaler] 2 puff INHALATION RT-BID #1 each 02/11/25 [Rx] Montelukast [Singulair] 10 mg PO HS #14 tab 02/11/25 [Rx] guaiFENesin-Coden 100-10MG/5ML [Robitussin AC] 10 ml PO Q6HR PRN #1 unit 02/11/25 [Rx] predniSONE 10 mg PO DAILY #20 tab 02/11/25 [Rx] Follow up Appointment(s)/Referral(s): Nonstaff,Physician [Primary Care Provider] - 1-2 days Garfield Pak MD [STAFF PHYSICIAN] - 1 Week Patient Instructions/Handouts: Asthma (DC), Bronchospasm (ED) Activity/Diet/Wound Care/Special Instructions: Please follow-up with your PCP and pulmonology within 1 week posthospital discharge. Discharge Disposition: HOME SELF-CARE
[2025-02-11 11:46] VITALS: PULSE 100
--- NOTE | 2025-02-11 21:31 | P.PN ---
Subjective Progress Note Date: 02/11/25 Patient is a 49-year-old female with past medical history significant for mild intermittent asthma, originally diagnosed as a child. She also has history of eczema and seasonal allergies. Denies any prior hospitalizations for asthma. Normally, uses her albuterol nebulizer and as needed albuterol inhaler only when sick.. She is a non-smoker, quit approximately 10 years ago. She also has history of hypertension, obesity, previous complicated appendicitis, depression. Was seen on outpatient basis at urgent care center, on December 22, and was told that she had pneumonia. She was treated with a combination of doxycycline for 10 days and prednisone 20 mg for 10 days. This did initially help her symptoms. She has also been using her albuterol nebulizer [id number], 4 times a day. Symptoms then returned/worsened, she went to her primary care provider, on February 01; and was started on another combination of antibiotics including cefdinir and doxycycline. She continues to have shortness of breath, wheezing, chest tightness, nonproductive dry cough. She has had intermittent low-grade fevers of 99.9 to 100.1 F while at home. Appetite has been poor. No nausea, vomiting, diarrhea. Came to the emergency department for evaluation yesterday evening. Workup including a chest x-ray which did not show any acute cardiopulmonary process. No pleural effusions, focal consolidations, or pneumothoraces. CBC: WBC count 11.7, hemoglobin 12.3, platelets 445. CMP unremarkable, electrolytes WDL, creatinine 0.69, glucose 100. Lactic 1.3. Started on a combination of DuoNebs and IV Solu-Medrol in the ED. Vital signs: Temperature 97.9 F, heart rate 68 bpm, blood pressure 113/77 mmHg, nontachypneic, SpO2 recorded at 97% on room air 02/10/2025, the patient continues to have cough congestion chest tightness or wheezing. Limited improvement over the past 24 hours. Remains on room air oxygen. Remains on bronchodilators. Remains on Symbicort and IV Solu-Medrol. White cell count is up to 26 with a hemoglobin of 11. Viral screen is negative. No chills. No fever. No pleurisy. No hemoptysis. There is some emotional lability probably related to systemic steroid use. As, improved OCD 02/11/2025, patient is feeling better. Not completely recovered however she is quite interested in going home. The hospital is making claustrophobic, anxious and she cannot tolerate treatment in the hospital. She wants to continue treatment and outpatient basis. Suggested a prednisone burst taper at time of discharge. White cell count 24 hemoglobin 11.2 and a platelet count of 445. She is on room air oxygen. Viral screen was negative. Continues to have ongoing bronchospasm and wheeze although less. She was discharged home on Symbicort and prednisone burst taper. She will be given Robitussin for cough and congestion. Objective - Vital Signs Vital signs: Vital Signs Temp 98.3 F 02/11/25 07:00 Pulse 100 02/11/25 11:45 Resp 15 02/11/25 07:00 BP 170/82 02/11/25 07:00 Pulse Ox 100 02/11/25 07:56 FiO2 21 02/09/25 07:44 Intake & Output 02/11/25 02/11/25 02/12/25 06:59 18:59 06:59 Intake Total 118 Balance 118 Intake: Oral 118 Other: # Voids 2 - Exam GENERAL EXAM: Alert, 49-year-old obese female, fairly comfortable in no apparent distress. HEAD: Normocephalic and atraumatic EYES: Normal reaction of pupils, equal size. NOSE: Clear with pink turbinates. No polyposis THROAT: No erythema or exudates. NECK: No masses, no JVD. CHEST: No chest wall deformity. LUNGS: Equal air entry with expiratory wheezing heard bilaterally throughout. On room air. No conversational dyspnea or accessory muscle use. CVS: S1 and S2 normal with no audible murmur, regular rhythm. No extra heart sounds ABDOMEN: No hepatosplenomegaly, active bowel sounds, no guarding or rigidity. SPINE: No scoliosis or deformity SKIN: No rashes or lesions CENTRAL NERVOUS SYSTEM: No focal deficits, tone is normal in all 4 extremities. EXTREMITIES: There is no peripheral edema, clubbing, or cyanosis. Peripheral pulses are intact. - Labs CBC & Chem 7: 02/11/25 06:46 02/08/25 17:48 Labs: Abnormal Lab Results - Last 24 Hours (Table) 02/11/25 Range/Units 06:46 WBC 24.88 H (4.50-10.00) 10*3/uL RBC 4.09 L (4.10-5.20) 10*6/uL Hgb 11.2 L (12.0-15.0) g/dL Hct 34.2 L (37.2-46.3) % RDW 14.6 H (11.5-14.5) % Plt Count 445 H (140-440) 10*3/uL Immature Gran # 0.36 H (0.00-0.04) 10*3/uL Neutrophils # 22.28 H (1.80-7.70) 10*3/uL Eosinophils # 0.00 L (0.04-0.35) 10*3/uL Microbiology - Last 24 Hours (Table) 02/08/25 17:48 Blood Culture - Preliminary Blood Assessment and Plan Assessment: Acute asthma exacerbation, partially recovered. Insisted on going home, improving Acute dyspnea, secondary to above Acute leukocytosis, likely steroid-induced Chronic seasonal allergies History of atopic dermatitis Hypertension Obesity, with a BMI of 37.1 kg/m Depression History of appendectomy Plan: The patient will be discharged home on a prednisone burst taper, Symbicort, albuterol nebulizer treatments 4 times a day and Josi Asked to come back to the hospital if there is worsening your condition Remains on room air oxygen Will follow outpatient basis \
== END 2025-02-11 13:37 | disposition home or self-care (01) ==
LOC: EC 16:41 → 1SOBS 19:05 → 6NMEDSUR 02-10 16:08
PROVIDERS: ADMIT Hospitalist; ATTEND Hospitalist
DX: J45.21 Mild intermittent asthma with (acute) exacerbation (principal); D72.829 Elevated white blood cell count, unspecified; F32.A Depression, unspecified; I10 Essential (primary) hypertension; R73.03 Prediabetes; L20.9 Atopic dermatitis, unspecified; F41.9 Anxiety disorder, unspecified; G47.00 Insomnia, unspecified; G62.9 Polyneuropathy, unspecified; E66.9 Obesity, unspecified; Z68.37 Body mass index [BMI] 37.0-37.9, adult; Z87.891 Personal history of nicotine dependence; Z90.49 Acquired absence of other specified parts of digestive tract; Z79.899 Other long term (current) drug therapy
CPT/HCPCS: 96376 ×3; 96372 ×2; 96375; 96361; 96374; 99285; 36415; 94640 ×8; 94760 ×3; 93005; 80053; 83605; 85025 ×3; 87040; 87636; 71045; 71046; G0378 ×4; J1644 ×2; J2919 ×4; J2470